=== PATIENT | female | born 1990 | race Hispanic/Latino ===

== ENCOUNTER → 2021-07-13 08:04 | Outpatient (CLI) | payer OTHER, SELFPAY ==
--- NOTE | 2021-07-13 08:07 | DI.US.S_ITS ---
PROCEDURE: US OB <= 14 WEEKS FETUS INDICATIONS: viability and dates OUTSIDE/PRIOR DATING DATA: Last menstrual period (LMP): 05/01/2021. LMP-based estimated date of delivery (CARIDAD): 02/05/2022. First dating scan (date and location): [facility], 07/13/2021. Estimated date of delivery (CARIDAD) from first dating scan: 02/03/2022. The calculations are made using the ultrasound CARIDAD of 02/03/2022. TECHNIQUE: Real-time scanning was performed of the fetus and maternal pelvic organs, with image documentation. Endovaginal scanning was also performed to better visualize the fetus and maternal ovaries. COMPARISON: None. FINDINGS: Embryo: A single live intrauterine is seen. The measured heart rate is 165 beats per minute. The crown-rump length measures 3.8 cm, corresponding to an estimated gestational age of 10 weeks 5 days. It is too early for detailed anatomic assessment. By visual inspection, the amount of amniotic fluid is within normal limits. No significant findings of subchorionic/perigestational hemorrhage are seen. Maternal organs: Ovaries are within normal limits. IMPRESSION: A single live intrauterine is seen. No significant discrepancy is found between the estimated gestational age based on these images and the estimated gestational age based upon the given date of the last menstrual period. We strive to produce accurate, complete, and clear reports of imaging services. To assist us in improving patient care, this report was composed using standard report templates and voice recognition software. Therefore, it may contain abnormal punctuation, insertions and/or omissions. Occasional wrong-word or sound-alike substitutions may occur. Though we review the report and make efforts to correct it, we do recommend that the report be read carefully in proper context to recognize any text inaccuracies. Dictated by: Edgar Rocha M.D. on 07/13/2021 at 8:16 Approved by: Edgar Rocha M.D. on 07/13/2021 at 8:17
== END ==
PROVIDERS: PCP Physician Assistant; Referring Provider Obstetrics & Gynecology; Visit Provider Obstetrics & Gynecology
DX: Z36.87 Encounter for antenatal screening for uncertain dates (principal); Z3A.10 10 weeks gestation of pregnancy
CPT/HCPCS: 76801; 76817

== ENCOUNTER → 2021-07-18 10:45 | Outpatient (CLI) | payer OTHER, SELFPAY ==
[2021-07-18 11:40] LABS: Add Manual Diff / Slide Review NO; Basophils Absolute Auto 0 /uL (0-100); Basophils Percent Auto 0.2 % (0-2); Eosinophils Absolute Auto 200 /uL (0-450); Eosinophils Percent Auto 2.2 % (2-4); Hematocrit 40.5 % (36-46); Hemoglobin 14.2 g/dL (12.0-16.0); Lymphocytes Absolute Auto 2700 /uL (1100-4500); Lymphocytes Percent Auto 27.3 % (25-40); Mean Corpuscular Hemoglobin 30.8 PG (26-34); Monocytes Absolute Auto 700 /uL (0-900); Monocytes Percent Auto 6.8 % (3-14); Neutrophils Absolute Auto 6400 /uL (1500-7000); Neutrophils Percent Auto 63.5 % (50-75); Platelet Count 257 X10^3/uL (150-400); Red Cell Distribution Width 13.2 % (11.6-14.8)
[2021-07-18 11:40] LABS: Appearance Urine UA CLEAR; Bilirubin Urine UA NEGATIVE (NEGATIVE); Color Urine UA YELLOW; Glucose Urine UA NEGATIVE (Negative); Ketones Urine UA NEGATIVE (NEGATIVE); Leukocyte Esterase Urine UA TRACE (NEGATIVE); Nitrite Urine UA NEGATIVE (Negative); Occult Blood Urine UA NEGATIVE (Negative); Protein Urine UA NEGATIVE (Negative); Urobilinogen Urine UA 0.2 E.U./dL (0.2)
[2021-07-18 11:46] LABS: Bacteria Urine Many (>30); RBC Urine None Seen (0-5/HPF); Squamous Epithelial Cell Urine 1-5 /HPF (0-5/HPF); WBC Urine 1-5/HPF (0-5/HPF)
[2021-07-19 05:33] LABS: RPR Screen Non Reactive (Non Reactive)
[2021-07-19 11:36] LABS: Varicella IgG Antibody 660 index (Immune >165)
[2021-07-19 16:54] LABS: Hepatitis B Surface Antigen NEGATIVE s/c (NEGATIVE)
[2021-07-19 17:00] LABS: HIV 1 & 2 Ab/Ag 4th Gen Combo NEGATIVE (NEGATIVE); Hep C Virus Ab w/Reflex Quant NEGATIVE s/c (NEGATIVE)
== END ==
PROVIDERS: PCP Physician Assistant; Referring Provider Obstetrics & Gynecology; Visit Provider Obstetrics & Gynecology
DX: Z34.00 Encounter for supervision of normal first pregnancy, unspecified trimester (principal)
CPT/HCPCS: 36415; 80055; 81003; 81015; 86787; 86803; 86850; 86900; 86901; 87077; 87086; 87186; 87389

== ENCOUNTER → 2021-09-07 16:06 | Outpatient (CLI) | payer OTHER, SELFPAY ==
[2021-09-10 12:59] LABS: AFP, Serum 62.5 ng/mL (.); Estriol, Free 1.52 ng/mL (.); Inhibin A, Dimeric 98.39 pg/mL (.); Inhibin A, MoM 0.81 (.); Maternal Ethnicity Other (.); Maternal Weight 229 lbs (.); Number of Fetuses No (.); OSBR Risk 1 IN 1713 (.); Results Report (.); Test Results *Screen Negative* (.); hCG, MoM 0.96 (.); hCG, Serum 21032 mIU/mL (.)
== END ==
PROVIDERS: PCP Physician Assistant; Referring Provider Obstetrics & Gynecology; Visit Provider Obstetrics & Gynecology
DX: Z34.02 Encounter for supervision of normal first pregnancy, second trimester (principal); Z3A.18 18 weeks gestation of pregnancy
CPT/HCPCS: 36415; 82105; 82677; 84702; 86336

== ENCOUNTER → 2021-09-19 10:46 | Outpatient (CLI) | payer OTHER, SELFPAY ==
--- NOTE | 2021-09-19 10:47 | DI.US.S_ITS ---
PROCEDURE: US OB >= 14 WEEKS FETUS INDICATIONS: 2o week anatomy scan OUTSIDE/PRIOR DATING DATA: Last menstrual period (LMP): 05/01/2021. LMP-based estimated date of delivery (CARIDAD): 02/05/2022. First dating scan (date and location): 06/23/2021. Estimated date of delivery (CARIDAD) from first dating scan: 02/03/2022. TECHNIQUE: Real-time scanning was performed of the fetus, with image documentation and biometric measurements. Endovaginal scanning: Not performed COMPARISON: None. FINDINGS: General: A single living intrauterine gestation is present. Presentation: Cephalic. Placenta: Placental position is posterior , without previa. Amniotic fluid index: 14.7 cm, normal range is 5-24 cm. Single deepest vertical pocket is 4.2 cm. heart rate: 143 beats per minute. Maternal cervical canal: 4.7 cm long. Normal lower limit is 2.5 cm. biometrics: Biparietal diameter: 5 cm, 21 weeks 1 day Head circumference: 18.9 cm, 21 weeks 2 days Abdominal circumference: 16.7 cm, 21 weeks 5 days Femur length: 3.5 cm, 21 weeks 1 day Clinically estimated gestational age: 20 weeks 1 day Composite gestational age from present scan: 21 weeks 2 days Estimated weight and percentile: 423 g, 97th percentile Anatomic survey: Neuro: Ventricles are non-dilated at less than 10 mm. Cisterna magna is normal at 3-11 mm. Cerebellum is normal in size and morphology. Nuchal skin fold: Normal at less than 6 mm between 14-21 weeks gestational age. Face: Nose and lips, facial profile are normal. Spine: No evidence for spina bifida. Heart: 4-chambered heart is present, with normal ventricular outflow tracts. Diaphragm: Diaphragm is intact. Stomach: Left-sided stomach is present. Kidneys: No hydronephrosis. Normal is less than 5 mm in 2nd trimester, less than 7 mm in 3rd trimester. Cord: 3-vessel cord has orthotopic insertion. Bladder: Normal in size. Extremities: All 4 extremities identified. IMPRESSION: 1. Single living intrauterine with CARIDAD of 02/05/2022 by LMP. 2. Estimated weight is greater than expected, at the 97th percentile. Attention on follow-up is recommended. 3. Normal 2nd trimester anatomy survey. No anomalies detected at this time. We strive to produce accurate, complete, and clear reports of imaging services. To assist us in improving patient care, this report was composed using standard report templates and voice recognition software. Therefore, it may contain abnormal punctuation, insertions and/or omissions. Occasional wrong-word or sound-alike substitutions may occur. Though we review the report and make efforts to correct it, we do recommend that the report be read carefully in proper context to recognize any text inaccuracies. Dictated by: Denzel Baptiste M.D. on 09/19/2021 at 20:39 Approved by: Denzel Baptiste M.D. on 09/19/2021 at 20:46
== END ==
PROVIDERS: PCP Physician Assistant; Referring Provider Obstetrics & Gynecology; Visit Provider Obstetrics & Gynecology
DX: Z34.02 Encounter for supervision of normal first pregnancy, second trimester (principal); Z3A.21 21 weeks gestation of pregnancy
CPT/HCPCS: 76811

== ENCOUNTER → 2021-10-16 15:21 | Outpatient (CLI) | payer OTHER, SELFPAY ==
[2021-10-16 18:14] LABS: Hematocrit 35.4 % (36-46)
[2021-10-16 18:25] LABS: GTT (PREG) 1 Hour PP 50gm Dose 151 mg/dL (76-139)
== END ==
PROVIDERS: PCP Physician Assistant; Referring Provider Obstetrics & Gynecology; Visit Provider Obstetrics & Gynecology
DX: Z34.90 Encounter for supervision of normal pregnancy, unspecified, unspecified trimester (principal); Z3A.22 22 weeks gestation of pregnancy
CPT/HCPCS: 36415; 82950; 85014; 85018

== ENCOUNTER → 2021-10-30 07:50 | Outpatient (CLI) | payer OTHER, SELFPAY ==
[2021-10-30 08:47] LABS: Glucose Fasting Gestational 123 mg/dL (76-95)
[2021-10-30 10:30] LABS: Glucose 1 Hour Gest 223 mg/dL (76-180)
[2021-10-30 11:13] LABS: Glucose 2 Hour Gest 175 mg/dL (76-155)
[2021-10-30 11:26] LABS: Glucose Tol Interp,Gestational INTERPRETATION
[2021-10-30 12:50] LABS: Glucose 3 Hour Gest 143 mg/dL (76-140)
== END ==
PROVIDERS: PCP Physician Assistant; Referring Provider Obstetrics & Gynecology; Visit Provider Obstetrics & Gynecology
DX: O99.810 Abnormal glucose complicating pregnancy (principal)
CPT/HCPCS: 36415; 82951; 82952

== ENCOUNTER → 2021-11-02 13:57 | Outpatient (CLI) | payer OTHER, SELFPAY ==
--- NOTE | 2021-11-02 17:34 | DIAB.GDA ---
Initial Gestational Diabetes Assessment Name: Courtney Segovia Date: 11/02/21 Time: 2-330p Dx: Gestational Diabetes Provider: Prabhu CARIDAD: 02/05/22 Weeks: 26-27 Sima presents today with her , Joel. She is having a boy! Endorses +FH of T2DM with father and paternal aunts. States she may have had prediabetes prior to , but she is unsure. Sima works from home and states she often looks for easy to make meals/snacks, often processed foods. OGTT significantly elevated. Currently taking Metformin 500mg at lunch and dinner. Is amenable to insulin prn. States she cut out a lot of carbs after diagnosis, ie hot pockets, cereal, and cup of noodles, chips, juice, oreos. Cut out fast food. She works from home. Moved [place]. Diet Recall: 9a: yogurt with toast and pro bar OR cereal 11a: balanced break 2p: eggs and string cheese ; turkey with green beans 5p: pro bar or cucumbers 6-830p: 2 sandwiches on ww thin bread ; 2c pasta with sauce and cheese ; burger with bun and 1c potatoes Water x 120oz daily Anthropometrics: Ht: 62 Wt: 228# last OB visit Prepregnancy wt: 220# Physical Activity: walking dog 1x per day for 15 min Self-Monitoring Blood Glucose: Just started checking BG. Only FBG available was elevated. States she was unclear as to when to check BG in the morning. Date Pre Post Pre Post Pre Post HS 11/01 94 132 11/02 104 Diabetes Medications: 500mg Metformin BID Pertinent Labs: OGTT: 128, 223, 175, 143 (all elevated) Nutrition Rx: Carbohydrates: Meal: 45-60g lunch and dinner; 30g breakfast Snack: 15-30g Nutrition Diagnosis: Altered nutrition related lab value r/t GDM dx aeb recent OGTT Nutrition and food related knowledge deficit r/t new GDM dx aeb pt report and OGTT Physical inactivity r/t stage of change preparation aeb pt report Intervention: This participant was very receptive. Provided appropriate educational handouts. Discussed the following topics: GDM pathophysiology and impact of hyperglycemia on mom and baby Risk for T2DM for mom and baby in the future Plate Method, meal timing, carb counting, pairing macronutrients and spreading out CHO for better BG management Blood glucose goals (FBG: <95 and 1 hour <140 mg/dL); importance of checking 4x per day (FBG and pc) Impact of macronutrients on blood glucose Recommended servings for carbohydrates at meals and snacks Brainstormed appropriate meal plan based on her food preferences Role of physical activity and following provider guidelines for safety After meal readings may be able to be managed with diet, given she had 44g CHO and BG was <140mg/dl last night. Though BG may trend up during . She will see OB in 10 days for BG and med evaluation. If FBG continue above target, potential insulin recs: 17-26u NPH HS based on weight or start with 10u HS and titrate Total daily dose insulin: 104kg x 1u/kg= 104units per day 104u/2= 52 NPH 52u x 1/3 for evening dose: 17u HS or 52u x 1/2 for evening dose: 26u HS Goals: Aim for 30 min walking daily Balance lunches (add veggies and pair macros) Check BG 4 x per day Take Metformin with breakfast and dinner Follow-up: KACEY TAM follow-up in two weeks. Jodi Bolaños RDN, [facility] Certified Diabetes Care and Print Traffic Manager T: [phone] F: [phone] [email or web address] Thank you for this referral
== END ==
PROVIDERS: PCP Physician Assistant; Referring Provider Obstetrics & Gynecology; Visit Provider Obstetrics & Gynecology
DX: O24.415 Gestational diabetes mellitus in pregnancy, controlled by oral hypoglycemic drugs (principal); Z3A.26 26 weeks gestation of pregnancy; Z71.3 Dietary counseling and surveillance
CPT/HCPCS: 97802

== ENCOUNTER → 2021-11-13 14:22 | Outpatient (CLI) | payer OTHER, SELFPAY | PROVIDERS: PCP Physician Assistant; Visit Provider Obstetrics & Gynecology | DX: Z34.03 Encounter for supervision of normal first pregnancy, third trimester (principal); Z3A.28 28 weeks gestation of pregnancy | CPT/HCPCS: 87077; 87086; 87186 ==

== ENCOUNTER → 2021-11-15 14:23 | Outpatient (CLI) | payer OTHER, SELFPAY ==
--- NOTE | 2021-11-15 14:23 | DIAB.GDFU ---
Follow-up Gestational Diabetes Assessment Name: Courtney Segovia Date: 11/15/21 Time: 130-215p Dx: Gestational Diabetes Provider: Prabhu CARIDAD: 02/05/22 Weeks: 28 Sima presents for GDM follow-up virtually via [employer] platform. Saw Dr. Pelletier 11/13. Her main concern was FBG. Dr. Pelletier has increased Metformin to 1000 mg BID to help with FBG numbers. She will cont to record BG and send to OB to determine insulin needs prn. Plans to pick remover higher Metformin dose today. Recently returned from trip to see family in [place]. Continued to balance meals and check BG. Spoke with family and friends about her diagnosis and had good support. Diet: Still struggling with lunch ideas. Had elevated BG of 168mg/dL after lunch of cereal, sf pudding and milk (70g CHO) Added easy veggies for dinner (green beans, broccoli) Had a cold when returned from trip. Some appetite changes (up and down) B: parfaits with yogurt, fruit, granola ; oatmeal fruit and cheese L: cereal or was eating out and balancing meals when on vacation D: PB and banana sandwich with cheese; turkey burgers with b.sprouts; [place] lunch meat warmed on bread Anthropometrics: Ht: 62 Wt: 224.5# 11/13 at OB visit 228# at previous visit. Down 3.5# likely r/t diet changes. Prepregnancy wt: 220# Physical Activity: Not much energy this week from recent cold. Was walking on vacation, maybe ?too much?, cramping and SOB. Feeling better today. Plans to walk 15 min BID. Self-Monitoring Blood Glucose: All FBG are above target, one reading of 95. Most postprandial reading in goal, with a few recent elevations. She has a question about low blood sugars. [place] faint and BG was at 80 mg/dL, had a snack (frozen yogurt), waited 20 minutes and checked B mg/dl. States she had eaten 1.5 hours prior, which was perhaps lower in carb (postprandial lunch reading of 98mg/dL for veggies and small dumplings x 4-5). Date Pre Post Pre Post Pre Post 11/08 97 128 126 11/09 95 142 98 131 11/10 92 85 114 11/11 118 122 113 108 11/12 108 132 148 11/13 114 111 102 107 11/14 107 124 163 126 11/15 94 105 Diabetes Medications: 1000 mg Metformin BID starting tonight Pertinent Labs: OGTT: 128, 223, 175, 143 (all elevated) Nutrition Rx: Carbohydrates: Meal: 45-60g lunch and dinner; 30g breakfast Snack: 15-30g Nutrition Diagnosis: Altered nutrition related lab value r/t GDM dx aeb recent OGTT Nutrition and food related knowledge deficit r/t new GDM dx aeb pt report and OGTT- improved Physical inactivity r/t stage of change preparation aeb pt report- in progress Intervention: This participant was very receptive. Provided appropriate educational handouts. Discussed the following topics: Recent blood sugar results and impact of food and hormones Hypoglycemia s/s Lunch ideas: special k pro, turkey pre warmed Review of macronutrient recommendations during Medication plan Physical activity plan Support and emotions around GDM diagnosis Goals: Aim for 30 min walking daily- in progress Balance lunches (add veggies and pair macros)- in progress Check BG 4 x per day- met Take Metformin with breakfast and dinner- met Keep cereal to one cup- new Check out special k pro cereal- new Add pro to cereal (nuts or cheese)- new Try pre warming turkey for lunch - new Follow-up: KACEY TAM follow-up in two weeks. Sima is doing very well and making a great lifestyle change progress. hormones are really impacting her FBG and she has a plan with Dr. Pelletier for this. Jodi Bolaños RDN, [facility] Certified Diabetes Care and Almond Pan Finisher T: [phone] F: [phone] [email or web address] Thank you for this referral
== END ==
PROVIDERS: PCP Physician Assistant; Referring Provider Obstetrics & Gynecology; Visit Provider Obstetrics & Gynecology
DX: O24.415 Gestational diabetes mellitus in pregnancy, controlled by oral hypoglycemic drugs (principal); Z3A.28 28 weeks gestation of pregnancy
CPT/HCPCS: 97803

== ENCOUNTER → 2021-11-23 16:12 | Outpatient (CLI) | payer OTHER, SELFPAY ==
[2021-11-23 19:04] LABS: Bilirubin Urine UA NEGATIVE (NEGATIVE); Color Urine UA YELLOW; Glucose Urine UA NEGATIVE (Negative); Ketones Urine UA 1+ (NEGATIVE); Leukocyte Esterase Urine UA TRACE (NEGATIVE); Nitrite Urine UA POSITIVE (Negative); Occult Blood Urine UA 1+ (Negative); Protein Urine UA TRACE (Negative); Specific Gravity Urine UA 1.025 (1.000-1.035); Urobilinogen Urine UA 0.2 E.U./dL (0.2)
[2021-11-23 19:05] LABS: Appearance Urine UA CLOUDY
[2021-11-23 19:11] LABS: RBC Urine 1-5/HPF (0-5/HPF)
[2021-11-23 19:12] LABS: Amorphous Sediment Urine 1+; Bacteria Urine Many (>30); Culture Indicated Urine Specimen Cultured; Mucus Urine 1+ (Negative); Squamous Epithelial Cell Urine 1-5 /HPF (0-5/HPF); WBC Urine 5-10/HPF (0-5/HPF)
[2021-11-23 20:30] LABS: Urine N gonorrhoeae NOT DETECTED
[2021-11-23 20:33] LABS: Urine Chlamydia NOT DETECTED
== END ==
PROVIDERS: PCP Physician Assistant; Visit Provider Obstetrics & Gynecology
DX: Z34.02 Encounter for supervision of normal first pregnancy, second trimester (principal); Z3A.29 29 weeks gestation of pregnancy
CPT/HCPCS: 81001; 87086; 87491; 87591

== ENCOUNTER → 2021-11-30 14:46 | Outpatient (CLI) | payer OTHER, SELFPAY ==
--- NOTE | 2021-11-30 14:47 | DIAB.GDFU ---
Follow-up Gestational Diabetes Assessment Name: Courtney Segovia Date: 11/30/21 Time: 1223-103p Dx: Gestational Diabetes Provider: Prabhu CARIDAD: 02/05/22 Weeks: 30-31 Sima presents for GDM follow-up virtually via [employer] platform. Taking Metformin 1000mg BID. Based on elevated FBG, would rec initiation of insulin HS. Has questions regarding potential for low BG. Last states she saw OB d/t feeling hot and cold and unwell. [place] lightheaded and clammy. Sometimes seeing floaters. Endorses discussing with OB. Some swelling in hands and right foot. She recovered by the next day after this. States BP was slightly elevated. Thinks the overall feeling unwell may be related to increased Metformin. BG was 102 mg/dL, so no hypo. Reports this does not seem to happen when she eats a more robust breakfast with morning Metformin dose. Overall, diet seems to be going well. Has been creative about lower carb cereals and using air fryer for turkey. Physical Activity: 15 min walks daily. Interested in yoga or more walking. Self-Monitoring Blood Glucose: Most FBG elevated this week. She is open to insulin therapy. No postprandial elevations. Date Pre Post Pre Post Pre Post HS 11/25 96 125 103 114 11/26 97 107 95 93 11/27 91 131 115 109 11/28 108 139 118 131 11/29 109 92 106 131 11/30 98 Diabetes Medications: 1000mg Metformin BID Pertinent Labs: Pertinent Labs: OGTT: 128, 223, 175, 143 (all elevated) Intervention: This participant was very receptive. Provided appropriate educational handouts. Discussed the following topics: Recent blood sugar results and impact of food and hormones Review of nutrition recs Review of insulin recs (where she can inject, action time of insulin) Physical activity progress and plan Low BG relatively low risk and treatment Insulin Recs: 0.9u/kg = 92u 92u /3 = 30u non fasting insulin dose 30u/d = 15u for bedtime dose Sima might benefit from 10-15u of NPH or long-acting insulin HS to help manage FBG. Goals: Cereal to one cup- met Special k pro cereal- d/c Add nuts or cheese to cereal- met Try pre warming turkey- met Walking 15 min BID- 50% met Try extending walk to 20 min- new Add yoga stretches 10 min per day - new Follow-up: KACEY TAM follow-up in 2 weeks. Will call her next week to check-in but she will see Dr. Pelletier next week as well. Jodi Bolaños RDN, [facility] Certified Diabetes Care and Journeyman Pressman T: [phone] F: [phone] [email or web address] Thank you for this referral
== END ==
PROVIDERS: PCP Physician Assistant; Referring Provider Obstetrics & Gynecology; Visit Provider Obstetrics & Gynecology
DX: O24.415 Gestational diabetes mellitus in pregnancy, controlled by oral hypoglycemic drugs (principal); Z3A.30 30 weeks gestation of pregnancy; Z71.3 Dietary counseling and surveillance
CPT/HCPCS: G0108

== ENCOUNTER → 2021-12-05 11:51 | Outpatient (CLI) | payer OTHER, SELFPAY | PROVIDERS: PCP Physician Assistant; Visit Provider Obstetrics & Gynecology | DX: R31.9 Hematuria, unspecified (principal); Z34.03 Encounter for supervision of normal first pregnancy, third trimester; Z3A.31 31 weeks gestation of pregnancy | CPT/HCPCS: 87077; 87086; 87186 ==

== ENCOUNTER → 2021-12-14 17:05 | Outpatient (CLI) | payer OTHER, SELFPAY ==
--- NOTE | 2021-12-14 17:07 | DIAB.GDFU ---
Follow-up Gestational Diabetes Assessment Name: Courtney Segovia Date: 12/14/21 Time:105-2p Dx: Gestational Diabetes Provider: Prabhu CARIDAD: 02/05/22 Weeks: 32 Sima presents for GDM follow-up virtually via [employer] platform. Still having difficulty filling her insulin rx. Hoping [facility] will have rx ready today. [facility] Levemir, asked for Lantus rx. Now rx back to [facility]. [facility] OB RN got auth for Levemir, should be filled today per report. Reports some meals higher in carb resulting in elevated BG, but overall most meals in goal for nutrition rx and elevations after breakfast are related to eating after elevated FBG. She is noticing some days with limited appetite. Trying low carb protein drink to supplement. Diet Recall: B: yogurt, toast or toast with apple and PB or egg sandwich Sn: balanced breaks +/- cheese L: turkey sandwiches, apples and PB or pro shake or higher pro cereal (1-1.5c) Sn: yogurt or string cheese with fruit D: 1c beans, broccoli or b. sprouts or zucchini, potatoes, cheese with lower carb tortillas Lower carb frozen meals with 1c rice Sn: nothing or keto ice cream Beverages: water Has questions today about meds and BG and risk for GDM in future. Anthropometrics: Ht: 62 Wt: 223# 12/11 at OB visit Continued weight loss may be r/t diet changes. Encouraged small frequent meals and adding more nutrition to shakes. Prepregnancy wt: 220# Physical Activity: Stretches q day Walking more with preparing for baby shower while shopping Goes for walks on days she is not shopping. Walking 20 minutes Trying to incorporate more walking in her day, walking dog 5-10 min Self-Monitoring Blood Glucose: 06/21 elevated FBG. 2 elevated pc readings. Sima reports reducing BG checks per day d/t paying out of pocket for strips. This seems to be an oversight somewhere. She plans to call pharmacy for more information. Date Pre Post Pre Post Pre Post HS 12/08 93 104 142 12/09 91 96 12/10 114 160 105 12/11 87 108 128 109 12/12 101 115 118 12/13 102 94 111 12/14 116 Diabetes Medications: 1000mg Metformin BID XR Detemir 30u HS (not started) Pertinent Labs: OGTT: 128, 223, 175, 143 (all elevated) Nutrition Rx: Carbohydrates: Meal: 45-60g lunch and dinner; 30g breakfast Snack: 15-30g Nutrition Diagnosis: Altered nutrition related lab value r/t GDM dx aeb recent OGTT Nutrition and food related knowledge deficit r/t new GDM dx aeb pt report and OGTT- improved Physical inactivity r/t stage of change preparation aeb pt report- in progress Intervention: This participant was very receptive. Provided appropriate educational handouts. Discussed the following topics: Recent blood sugar results and impact of food and hormones Barriers to insulin and strips. Brainstormed plan. Adding carbs to low protein shake at snack GDM risk in future pregnancies Potential BG checks 2 x per week until 6 week check Likelihood of d/c insulin Goals: Try extending walk to 20 min- met Add yoga stretches 10 min per day - met Add some fruit to pro shake or eat with carb for mini meal or snack- new Call pharmacy about insulin and strips- new Follow-up: KACEY TAM follow-up over phone/message in one week. 1:1 in three weeks. Jodi Bolaños RDN, [facility] Certified Diabetes Care and Supply And Distribution Manager T: [phone] F: [phone] [email or web address] Thank you for this referral
== END ==
PROVIDERS: PCP Physician Assistant; Referring Provider Obstetrics & Gynecology; Visit Provider Obstetrics & Gynecology
DX: O24.415 Gestational diabetes mellitus in pregnancy, controlled by oral hypoglycemic drugs (principal); Z3A.32 32 weeks gestation of pregnancy; Z71.3 Dietary counseling and surveillance
CPT/HCPCS: 97803

== ENCOUNTER → 2021-12-27 14:33 | Outpatient (CLI) | payer OTHER, SELFPAY | PROVIDERS: PCP Physician Assistant; Visit Provider Physician Assistant Medical | DX: Z34.03 Encounter for supervision of normal first pregnancy, third trimester (principal); N39.0 Urinary tract infection, site not specified; Z3A.34 34 weeks gestation of pregnancy | CPT/HCPCS: 87086 ==

== ENCOUNTER 2021-12-27 15:00 | Outpatient (CLI) | payer OTHER, SELFPAY ==
--- NOTE | 2021-12-27 15:11 | DI.US.S_ITS ---
PROCEDURE: US OB LIMITED INDICATIONS: GROWTH AND BPP, GDM ON INSULIN OUTSIDE/PRIOR DATING DATA: Last menstrual period (LMP): May 01, 2021. LMP-based estimated date of delivery (CARIDAD): February 05, 2022. First dating scan (date and location): July 13, 2021, formerly [facility]. Estimated date of delivery (CARIDAD) from first dating scan: February 03, 2022 TECHNIQUE: Real-time scanning was performed of the fetus, with image documentation and biometric measurements. Biophysical profile was also obtained. Endovaginal scanning: Not performed COMPARISON: None. FINDINGS: General: A single living intrauterine gestation is present. Presentation: Vertex. Placenta: Placental position is posterior , without previa. Amniotic fluid index: 11.8 cm, normal range is 5-24 cm. Single deepest vertical pocket is 3.4 cm. heart rate: 139 beats per minute. Maternal cervical canal: Not visualized biometrics: Biparietal diameter: 9.4 cm, 38 weeks, 2 days Head circumference: 3.2 cm, 37 weeks, 6 days Abdominal circumference: 31.7 cm, 35 weeks, 5 days Femur length: 6.7 cm, 34 weeks, 3 days Composite gestational age from present scan: 34 weeks, 4 days Estimated weight and percentile: 36 weeks, 4 days Biophysical profile: Tone: 2 points. Movement: 2 points. Respiration: 2 points. Largest pocket of fluid: 2 points. IMPRESSION: 1. Single live intrauterine gestation with a composite gestational age of 36 weeks, 4 days which is concordant with dates by initial scan. 2. 8/8 biophysical profile. We strive to produce accurate, complete, and clear reports of imaging services. To assist us in improving patient care, this report was composed using standard report templates and voice recognition software. Therefore, it may contain abnormal punctuation, insertions and/or omissions. Occasional wrong-word or sound-alike substitutions may occur. Though we review the report and make efforts to correct it, we do recommend that the report be read carefully in proper context to recognize any text inaccuracies. Dictated by: Madelin Kulkarni M.D. on 12/27/2021 at 16:51 Approved by: Madelin Kulkarni M.D. on 12/27/2021 at 16:53
== END 2021-12-27 15:35 | disposition home or self-care (01) ==
LOC: LABOR 15:26 → OB 01-01 13:01
PROVIDERS: PCP Physician Assistant; Referring Provider Obstetrics & Gynecology; Visit Provider Obstetrics & Gynecology
DX: O24.414 Gestational diabetes mellitus in pregnancy, insulin controlled (principal); Z3A.34 34 weeks gestation of pregnancy; Z34.03 Encounter for supervision of normal first pregnancy, third trimester; N39.0 Urinary tract infection, site not specified
CPT/HCPCS: 59025; 76815; 76819; 87086; G0378; G0379

== ENCOUNTER 2022-01-03 12:35 | Outpatient (CLI) | payer OTHER, SELFPAY ==
--- NOTE | 2022-01-03 13:14 | P.TNLD_ITS ---
Visit Information Visit Information Date of evaluation: 01/03/22 On-call OB Provider: Yessi Tai Reason for Evaluation: Yes non-stress test non-stress test reason: diabetes PFSH Medical History Asthma Chicken pox Encounter for supervision of normal first , first trimester Surgical History [place] teeth extracted Family History Father Diabetes mellitus Mental health problem Social History marital status: number of children: 0 household members: spouse lives independently: Yes housing: apartment pets and animals: Yes (dog, snake) education level: master's degree occupational status: employed current occupational exposures/hazards: 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, sometimes smells odors from downstairs.) special cam needs: No travel history: over 6 months ago seatbelt use: always water heater temp set < 120 deg: No (will check) working smoke detector in home: Yes fire extinguisher in home: No carbon monox detector in home: Yes firearms in home: Yes firearms unloaded and locked: Yes do you feel safe at home: Yes Smoking Status: Never smoker second hand exposure: Yes (as child, no longer) alcohol intake: former substance use type: marijuana (was using edibles for back pain, stopped since + test) during the past year weight has: remained stable well-balanced diet: daily or most days daily servings fruits/ve-4 Type(s) of exercise: walking and regular exercise frequency: 3-4 times per week Evaluation Evaluation Baseline heart rate: 135 Variability: Moderate (11-25) monitor accelerations: Present Monitor Decelerations: Absent Contraction Frequency (minutes): 6 Uterine Contraction Intensity: Mild Category of Tracing: Reactive Diagnosis, Plan/Disposition Plan/Disposition Plan: BPP in 1 week NST twice a week OB Disposition: home
== END 2022-01-03 13:44 | disposition home or self-care (01) ==
LOC: OB 01-07 08:51
PROVIDERS: PCP Physician Assistant; Referring Provider Obstetrics & Gynecology; Visit Provider Obstetrics & Gynecology
DX: O24.414 Gestational diabetes mellitus in pregnancy, insulin controlled (principal); Z3A.35 35 weeks gestation of pregnancy
CPT/HCPCS: 59025; 87077; 87086; 87186; G0378; G0379

== ENCOUNTER → 2022-01-03 14:41 | Outpatient (CLI) | payer OTHER, SELFPAY | PROVIDERS: PCP Physician Assistant; Visit Provider Obstetrics & Gynecology | DX: R35.0 Frequency of micturition (principal) | CPT/HCPCS: 87086 ==

== ENCOUNTER → 2022-01-04 13:16 | Outpatient (CLI) | payer OTHER, SELFPAY ==
--- NOTE | 2022-01-04 14:21 | DIAB.GDFU ---
Follow-up Gestational Diabetes Assessment Name: Courtney Segovia Date: 01/04/22 Time: 1-145p Dx: Gestational Diabetes CARIDAD: 02/05/22 Weeks: 35 Sima presents for GDM follow-up virtually via [email or web address] platform. Two main concerns Sima brought up today were in regard to induction in two weeks and limited weight gain. Her OB (Dr. Pelletier) is out of town, and she saw Dr. Salinas and Dr. Tai recently. They had recommended induction at 37 weeks. Sima is very uneasy about this. Since most blood sugars are in goal, she is surprised to hear that she may be induced at 37 weeks. States she has lost sleep over this. Dr. Pelletier returns next week per her report. She is also concerned that she has only net gained 5# over this . Given prepregnancy weight, IOM recs are about 10#, however she has made significant changes to her diet since GDM diagnosis. Additionally, she is not feeing overly hungry. Seems to be eating appropriately. Is spacing meals/snacks through the day. Is having some early satiety, which often occurs later in . Anthropometrics: Ht: 62 Wt: 225# 01/03 (yesterday) at OB visit Prepregnancy wt: 220# Physical Activity: Endorses staying active. Not discussed in detail today. Self-Monitoring Blood Glucose: / elevated FBG and no recent 1 hr pc elevations. Called pharmacy and had rx; no longer paying out of pocket for strips. Date Pre Post Pre Post Pre Post HS 12/29 83 129 12/30 78 102 138 12/31 98 110 117 01/01 84 102 123 01/02 87 88 105 01/03 83 132 140 01/04 99 Diabetes Medications: 1000mg Metformin BID XR Detemir 30u HS Pertinent Labs: OGTT: 128, 223, 175, 143 (all elevated) Nutrition Rx: Carbohydrates: Meal: 45-60g lunch and dinner; 30g breakfast Snack: 15-30g Nutrition Diagnosis: Altered nutrition related lab value r/t GDM dx aeb recent OGTT Nutrition and food related knowledge deficit r/t needing recs aeb new dx GDM this Intervention: This participant was very receptive. Provided appropriate educational handouts. Discussed the following topics: Recent blood sugar results and trends Discussed induction recs. Encouraged her to discuss further with Dr. Pelletier. Reviewed how GDM with well managed BG on meds can result in induction at 39 weeks, but unclear if there are other underlying reasons why OB may rec induction sooner. Again encouraged her not to worry too much and to discuss plan with Dr. Pelletier. She agreed. Review of macronutrient recommendations during and Weight changes during . Benefits, resources, and nutrition for recommendations for nutrition and physical activity recommendations for T2DM risk reduction OGTT at 6-12 weeks Option of checking blood sugars twice per week (goal: fasting <100 mg/dL and 2 hour pc <140 mg/dL) until 6 week check-up HgA1c q 1-3 years. Goals: Add some fruit to pro shake or eat with carb for mini meal or snack- not discussed Call pharmacy about insulin and strips- met Discuss induction plan with Dr. Pelletier- new OGTT 6-12 weeks - new hgA1c q 1-3 years- new Follow-up: KACEY TAM follow-up prn. Sima's GDM is well managed on current regimen. Encouraged her to call or message me with any questions or follow-up needs. Jodi Bolaños RDN, YONATAN Certified Diabetes Care and Director Of Oncology T: [phone] F: [phone] [email or web address] Thank you for this referral
== END ==
PROVIDERS: PCP Physician Assistant; Referring Provider Physician Assistant; Visit Provider Obstetrics & Gynecology
DX: O24.414 Gestational diabetes mellitus in pregnancy, insulin controlled (principal); Z3A.35 35 weeks gestation of pregnancy; Z71.3 Dietary counseling and surveillance
CPT/HCPCS: G0108

== ENCOUNTER 2022-01-06 10:54 | Outpatient (CLI) | payer OTHER, SELFPAY ==
--- NOTE | 2022-01-06 11:33 | P.TNLD_ITS ---
Visit Information Visit Information Date of evaluation: 01/06/22 Primary OB Provider: Alfredo Pelletier On-call OB Provider: Yessi Tai Reason for Evaluation: Yes non-stress test non-stress test reason: diabetes (GDM A2) FOR[facility]LY [facility], [facility] Medical History Asthma Chicken pox Encounter for supervision of normal first , first trimester Surgical History [place] teeth extracted Family History Father Diabetes mellitus Mental health problem Social History marital status: number of children: 0 household members: spouse lives independently: Yes housing: apartment pets and animals: Yes (dog, snake) education level: master's degree occupational status: employed current occupational exposures/hazards: 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, sometimes smells odors from downstairs.) special cam needs: No travel history: over 6 months ago seatbelt use: always water heater temp set < 120 deg: No (will check) working smoke detector in home: Yes fire extinguisher in home: No carbon monox detector in home: Yes firearms in home: Yes firearms unloaded and locked: Yes do you feel safe at home: Yes Smoking Status: Never smoker second hand exposure: Yes (as child, no longer) alcohol intake: former substance use type: marijuana (was using edibles for back pain, stopped since + test) during the past year weight has: remained stable well-balanced diet: daily or most days daily servings fruits/ve-4 Type(s) of exercise: walking and regular exercise frequency: 3-4 times per week Evaluation Evaluation Baseline heart rate: 135 Variability: Moderate (11-25) monitor accelerations: Present Monitor Decelerations: Absent Category of Tracing: Reactive Diagnosis, Plan/Disposition Plan/Disposition Plan: Assessment: 31-year-old 1 para 0 at 35-,5/7 weeks gestation with gestational diabetes, A2 Reactive nonstress test Plan: Discharged home Follow-up in 3 days for repeat nonstress test Induction scheduled for 37 weeks OB Disposition: home
== END 2022-01-06 11:44 | disposition home or self-care (01) ==
LOC: LABOR 11:39 → OB 01-08 10:33
PROVIDERS: PCP Physician Assistant; Referring Provider Obstetrics & Gynecology; Visit Provider Obstetrics & Gynecology
DX: O24.414 Gestational diabetes mellitus in pregnancy, insulin controlled (principal); Z3A.35 35 weeks gestation of pregnancy
CPT/HCPCS: 59025; G0378; G0379

== ENCOUNTER → 2022-01-09 09:16 | Outpatient (CLI) | payer OTHER, SELFPAY ==
[2022-01-10 08:23] LABS: Strep Grp B PCR NEG for Grp B Strep
== END ==
PROVIDERS: PCP Physician Assistant; Visit Provider Obstetrics & Gynecology
DX: Z34.03 Encounter for supervision of normal first pregnancy, third trimester (principal); Z3A.36 36 weeks gestation of pregnancy
CPT/HCPCS: 87653

== ENCOUNTER 2022-01-09 10:03 | Observation (INO) | payer OTHER, SELFPAY ==
--- NOTE | 2022-01-09 11:09 | DI.US.S_ITS ---
PROCEDURE: US OB BIOPHYSICAL PROFILE INDICATIONS: gestational diabetes OUTSIDE/PRIOR DATING DATA: Last menstrual period (LMP): 05/01/2021 LMP-based estimated date of delivery (CARIDAD): 02/05/2022 First dating scan (date and location): 07/13/2021 Estimated date of delivery (CARIDAD) from first dating scan: 04/05/2021 TECHNIQUE: Real-time scanning was performed of the fetus for biophysical profile, with image documentation. Color and pulse Doppler interrogation was also performed of the umbilical artery near its insertion into the placenta. Endovaginal scanning: Not performed today COMPARISON: [facility], , OB >= 14 WEEKS FETUS, 01/03/2022, 15:17. FINDINGS: General: A single living intrauterine gestation is present. Presentation: Cephalic. Placenta: Posterior Amniotic fluid index: 10.2 heart rate: 144 beats per minute Maternal cervical canal: Not well seen Estimated gestational age is 36 weeks and 3 days based on prior dating Biophysical profile: Tone: 2 points. Movement: 2 points. Respiration: 2 points. Largest pocket of fluid: 2 points. IMPRESSION: Intrauterine at 36 weeks and 3 days based on prior dating. BPP is 8/8. We strive to produce accurate, complete, and clear reports of imaging services. To assist us in improving patient care, this report was composed using standard report templates and voice recognition software. Therefore, it may contain abnormal punctuation, insertions and/or omissions. Occasional wrong-word or sound-alike substitutions may occur. Though we review the report and make efforts to correct it, we do recommend that the report be read carefully in proper context to recognize any text inaccuracies. Dictated by: Karel Parekh M.D. on 01/09/2022 at 12:39 Approved by: Karel Parekh M.D. on 01/09/2022 at 12:42
--- NOTE | 2022-01-09 12:41 | PM.OBTRLD ---
Visit Information Visit Information Date of evaluation: 01/09/22 Primary OB Provider: Alfredo Pelletier On-call OB Provider: Alferdo Pelletier Reason for Evaluation: Yes non-stress test Comments/Additional reasons for admission: GDM A2 [facility] Medical History Asthma Chicken pox Encounter for supervision of normal first , first trimester Surgical History [place] teeth extracted Family History Father Diabetes mellitus Mental health problem Social History marital status: number of children: 0 household members: spouse lives independently: Yes housing: apartment pets and animals: Yes (dog, snake) education level: master's degree occupational status: employed current occupational exposures/hazards: 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, sometimes smells odors from downstairs.) special cam needs: No travel history: over 6 months ago seatbelt use: always water heater temp set < 120 deg: No (will check) working smoke detector in home: Yes fire extinguisher in home: No carbon monox detector in home: Yes firearms in home: Yes firearms unloaded and locked: Yes do you feel safe at home: Yes Smoking Status: Never smoker second hand exposure: Yes (as child, no longer) alcohol intake: former substance use type: marijuana (was using edibles for back pain, stopped since + test) during the past year weight has: remained stable well-balanced diet: daily or most days daily servings fruits/ve-4 Type(s) of exercise: walking and regular exercise frequency: 3-4 times per week
== END 2022-01-09 12:35 | disposition home or self-care (01) ==
PROVIDERS: Admitting Provider Obstetrics & Gynecology; PCP Physician Assistant; Referring Provider Obstetrics & Gynecology; Visit Provider Obstetrics & Gynecology
DX: O24.414 Gestational diabetes mellitus in pregnancy, insulin controlled (principal); Z3A.36 36 weeks gestation of pregnancy; Z34.03 Encounter for supervision of normal first pregnancy, third trimester
CPT/HCPCS: 59025; 76819; 87653; G0378; G0379

== ENCOUNTER 2022-01-13 11:01 | Outpatient (CLI) | payer OTHER, SELFPAY | END 2022-01-13 11:59 | disposition home or self-care (01) | LOC: OB 01-18 16:45 | PROVIDERS: PCP Physician Assistant; Referring Provider Obstetrics & Gynecology; Visit Provider Obstetrics & Gynecology | DX: O47.03 False labor before 37 completed weeks of gestation, third trimester (principal); O24.913 Unspecified diabetes mellitus in pregnancy, third trimester; Z79.4 Long term (current) use of insulin; Z79.84 Long term (current) use of oral hypoglycemic drugs; Z3A.36 36 weeks gestation of pregnancy | CPT/HCPCS: 59025; G0378; G0379 ==

== ENCOUNTER 2022-01-15 15:26 | Outpatient (CLI) | payer OTHER, SELFPAY | END 2022-01-15 16:23 | disposition home or self-care (01) | LOC: LABOR 16:23 → OB 01-18 16:43 | PROVIDERS: PCP Physician Assistant; Referring Provider Obstetrics & Gynecology; Visit Provider Obstetrics & Gynecology | DX: O24.414 Gestational diabetes mellitus in pregnancy, insulin controlled (principal); Z3A.37 37 weeks gestation of pregnancy | CPT/HCPCS: G0378; G0379 ==

== ENCOUNTER 2022-01-18 14:38 | Outpatient (CLI) | payer OTHER, SELFPAY ==
--- NOTE | 2022-01-18 15:09 | DI.US.S_ITS ---
PROCEDURE: US OB BIOPHYSICAL PROFILE INDICATIONS: GESTATIONAL DIABETES OUTSIDE/PRIOR DATING DATA: Last menstrual period (LMP): 05/01/21 LMP-based estimated date of delivery (CARIDAD): 02/05/22. First dating scan (date and location): 07/13/21. Estimated date of delivery (CARIDAD) from first dating scan: 02/03/22. The calculations are made using the 1st trimester CARIDAD of 02/03/22. TECHNIQUE: Real-time scanning was performed of the fetus for biophysical profile, with image documentation. Color and pulse Doppler interrogation was also performed of the umbilical artery near its insertion into the placenta. Endovaginal scanning: Not needed COMPARISON: [facility], , OB BIOPHYSICAL PROFILE, 01/09/2022, 11:38. FINDINGS: General: A single living intrauterine gestation is present. Presentation: Vertex. Placenta: Placental position is posterior fundal , without previa. Lower placental edge 0.5 to 3 cm from internal cervical os qualifies as low lying placenta. Marginal previa is defined as lower edge 0 to 0.5 mm from internal os. Amniotic fluid index: 7.3 cm, normal range is 5-24 cm. Single deepest vertical pocket is 2.9 cm. heart rate: 147 beats per minute. Biophysical profile: Tone: 2 points. Movement: 2 points. Respiration: 2 points. Largest pocket of fluid: 2 points. IMPRESSION: Normal biophysical profile, delivery date projected to be centered on 02/03/22 We strive to produce accurate, complete, and clear reports of imaging services. To assist us in improving patient care, this report was composed using standard report templates and voice recognition software. Therefore, it may contain abnormal punctuation, insertions and/or omissions. Occasional wrong-word or sound-alike substitutions may occur. Though we review the report and make efforts to correct it, we do recommend that the report be read carefully in proper context to recognize any text inaccuracies. Dictated by: Pierre Peters M.D. on 01/18/2022 at 15:38 Approved by: Pierre Peters M.D. on 01/18/2022 at 15:41
== END 2022-01-18 15:45 | disposition home or self-care (01) ==
LOC: LABOR 14:54 → OB 01-22 08:00
PROVIDERS: PCP Physician Assistant; Referring Provider Obstetrics & Gynecology; Visit Provider Obstetrics & Gynecology
DX: O24.414 Gestational diabetes mellitus in pregnancy, insulin controlled (principal); Z3A.37 37 weeks gestation of pregnancy
CPT/HCPCS: 59025; 76819; G0378; G0379

== ENCOUNTER 2022-01-22 18:24 | Inpatient (IN) | payer OTHER, SELFPAY ==
--- NOTE | 2022-01-22 20:27 | P.HPOB_ITS ---
OB HPI Date/Time Date of admission: 01/22/22 Date Patient Seen: 01/22/22 History of Present Condition Chief complaint: IUP, 38+0 wks EGA, GDM A2 : 1 Para: 0 Estimated Date of Delivery: 02/05/22 Estimated Gestational Age (weeks): 38+0 Narrative: Courtney Segovia is a 31 year old G1 admitted at 38+0 weeks EGA for ripening/induction due to GDM A2 on HS Levemir 30u and Metformin XR 1000 mg BID w/ excellent control. Her antepartum testing has been reassuring. Her most recent growth scan on 12/27/2021 didn't provide an EFW or %'tile but composite EGA was slightly ahead of dates and the HC/BPD were both LGA. Will repeat growth scan following admission for update biometry as the vertex remains unengaged. GBS is negative. Indications Indication for induction OB: gestational diabetes History of Present care: good care Dating criteria: LMP confirmed by 1st trimester US Obstetrical complications: gestational diabetes Preadmission Labs Blood type: O (+) positive -: Antibody screen: negative, GBS status: negative, HBsAG: negative, HIV: negative and RPR/VDLR: negative -: Chlamydia screen: not detected and Gonorrhea screen: not detected -: Rubella: not immune and Varicella: immune HCT: 35.4 HCAB: negative PAP: Normal 1 hr GTT: 151 3 hr GTT: 1 hr (223), 2 hr (175) and 3 hr (143) Fasting blood glucose: 123 Prior (ies) History: N/A Evaluation Evaluation Baseline heart rate: 135 Variability: Moderate (11-25) monitor accelerations: Present Monitor Decelerations: Absent Uterine Contraction Intensity: Mild Category of Tracing: Reactive Status: Category l Dilation (cm): 0 Effacement (%): 25 Dilation: Closed Effacement: 0-30% station: -3 Position of cervix: posterior Consistency: firm Sanchez score: 0 PFSH Medical History Asthma Chicken pox Encounter for supervision of normal first , first trimester Surgical History [place] teeth extracted Family History Father Diabetes mellitus Mental health problem Social History marital status: number of children: 0 household members: spouse lives independently: Yes housing: apartment pets and animals: Yes (dog, snake) education level: master's degree occupational status: employed current occupational exposures/hazards: 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, rowena arjunmes smells odors from downstairs.) special cam needs: No travel history: over 6 months ago seatbelt use: always water heater temp set < 120 deg: No (will check) working smoke detector in home: Yes fire extinguisher in home: No carbon monox detector in home: Yes firearms in home: Yes firearms unloaded and locked: Yes do you feel safe at home: Yes Smoking Status: Never smoker second hand exposure: Yes (as child, no longer) alcohol intake: former substance use type: marijuana (was using edibles for back pain, stopped since + test) during the past year weight has: remained stable well-balanced diet: daily or most days daily servings fruits/ve-4 Type(s) of exercise: walking and regular exercise frequency: 3-4 times per week Meds Home Medications and Allergies Home Medications Medication Instructions Recorded Confirmed Type prenat.vits,philipp,hcq-fduy-qbfwj 1 tab PO DAILY 07/09/21 01/22/22 History docusate sodium 100 mg capsule 100 mg PO DAILY 07/18/21 01/22/22 History (Stool Softener) inulin 2 gram chewable tablet g PO 07/18/21 01/15/22 History (Fiber Gummies) lancets 30 gauge and blood glucose #100 ea 10/31/21 01/15/22 Rx strips combo pack metformin 1,000 mg tablet,extended 1,000 mg PO BID #60 tabs 11/13/21 01/22/22 Rx release 24hr pen needle, diabetic 31 gauge x #100 ea 12/05/21 01/15/22 Rx 5/16 (1st Tier Unifine Pentips) insulin detemir U-100 100 unit/mL 30 unit (0.3 mL) SUBCUT BEDTIME 12/12/21 01/22/22 Rx (3 mL) subcutaneous pen (Levemir #15 mL FlexTouch U-100 Insulin) blood sugar diagnostic (FreeStyle #100 ea 10/13/22 11/01/22 Rx Lite Strips) blood-glucose meter #1 ea 12/27/21 01/15/22 Rx Allergies Allergy/AdvReac Type Severity Reaction Status Date / Time No Known Allergies Allergy Verified 01/15/22 14:53 Review of Systems Review of Systems Narrative: Problem-specific ROS positives included in HPI OB Exam HENMT Head: normal to inspection, normocephalic and atraumatic Eyes General: appearance normal, both eyes and all related structures Resp Effort & Inspection: normal respiratory effort and able to speak in complete sentences Auscultation: clear to auscultation bilaterally Cardio Rate: regular rate Rhythm: regular rhythm Heart Sounds: S1 normal, S2 normal and no murmurs Extremities Lower extremity: Yes normal to inspection GI Inspection: normal to inspection Palpation: Yes soft and Yes no hepatosplenomegaly Uterus Location (Fundal Height): 39 Presentation: vertex Estimated Weight (lbs): 8 Objective Labs Result Diagrams: 01/22/22 20:50 Assessment and Plan Assessment and Plan Assessment and Plan narrative: ASSESSMENT 1. Intrauterine , 38+0 weeks EGA 2. Gestational diabetes, TypeA2 3. Possible LGA 4. Negative GBS PLAN 1. Admit for ripening 2. See admission orders
[2022-01-22 20:41] VITALS: BP 129/83
[2022-01-22] MEDS: miSOPROStoL 100 MCG TABLET 50 MCG PO (21:03)
[2022-01-22] MEDS: INSULIN GLARGINE 100 UNIT/ML 3ML PEN 30 UNIT SUBCUT (21:05)
[2022-01-22 21:28] LABS: COVID19 -Nasal RAPID Negative (Negative)
[2022-01-22 21:35] LABS: Add Manual Diff / Slide Review NO; Basophils Absolute Auto 0 /uL (0-100); Basophils Percent Auto 0.2 % (0-2); Eosinophils Absolute Auto 100 /uL (0-450); Eosinophils Percent Auto 0.7 % (2-4); Hematocrit 36.4 % (36-46); Hemoglobin 12.2 g/dL (12.0-16.0); Lymphocytes Absolute Auto 2600 /uL (1100-4500); Lymphocytes Percent Auto 21.3 % (25-40); Mean Corpuscular HGB Conc 33.6 % (30-36); Mean Corpuscular Hemoglobin 28.8 PG (26-34); Mean Corpuscular Volume 85.8 fL (80-100); Monocytes Absolute Auto 900 /uL (0-900); Monocytes Percent Auto 7.1 % (3-14); Neutrophils Absolute Auto 8700 /uL (1500-7000); Neutrophils Percent Auto 70.7 % (50-75); Platelet Count 336 X10^3/uL (150-400); Red Blood Cell Count 4.24 X10^6/uL (4.0-5.2); White Blood Cell Count 12.3 X10^3/uL (4.5-11.0)
[2022-01-23] MEDS: miSOPROStoL 100 MCG TABLET 50 MCG PO ×2 (03:04→09:07)
[2022-01-23] MEDS: METFORMIN XR 500 MG TABLET 1000 MG PO ×2 (09:04→17:47)
--- NOTE | 2022-01-23 11:04 | DI.US.S_ITS ---
PROCEDURE: US OB LIMITED INDICATIONS: GESTATIONAL DIABETES - GROWTH OUTSIDE/PRIOR DATING DATA: Last menstrual period (LMP): 05/01/2021. LMP-based estimated date of delivery (CARIDAD): 02/05/2022. First dating scan (date and location): 07/13/2021. Estimated date of delivery (CARIDAD) from first dating scan: 02/03/2022. TECHNIQUE: Real-time scanning was performed of the fetus, with image documentation and biometric measurements. Biophysical profile was also obtained. Endovaginal scanning: None COMPARISON: [facility], , OB LIMITED, 12/27/2021, 16:05. FINDINGS: General: A single living intrauterine gestation is present. Presentation: Vertex. Placenta: Placental position is posterior/fundal , without previa. Amniotic fluid index: 6.4 cm, normal range is 5-24 cm. Single deepest vertical pocket is 3.0 cm. heart rate: 140 beats per minute. Maternal cervical canal: Not visualized. Normal lower limit is 2.5 cm. biometrics: Biparietal diameter: 9.9 cm, 40 week 5 day Head circumference: 35.4 cm, 41 week 2 day Abdominal circumference: 35.2 cm, 39 week 1 day Femur length: 7.7 cm, 39 week 3 day Clinically estimated gestational age: 38 weeks, 3 day Composite gestational age from present scan: 40 weeks, 1 day Estimated weight and percentile: 3860 g, 90th percentile IMPRESSION: Single live intrauterine consistent with a 40 week 1 day gestation by current ultrasound Approved by: Franklin Goldberg M.D. on 01/23/2022 at 11:43
--- NOTE | 2022-01-23 13:51 | P.PNOB_ITS ---
Date/Time Date Patient Seen: 01/23/22 Time Patient Seen: 13:15 Pain Control Pain control: tolerating well Comments: Patient is not having any significant contractions/pain Pelvic Exam Dilation (cm): 0 Effacement (%): 25 station: -3 Amniotic membrane status: Intact Contractions Contractions on admission: none Monitor mode: External Contraction intensity: Mild Status status: Category l Heart Rate Baseline: 140 Monitor Accelerations: Present Monitor Decelerations: Absent Monitor Variability: Moderate Assessment and Plan Assessment: other (Ripening ongoing) Plan: continuous present management Comments: BS under good control. Will give 4th dose of PO cytotec and recheck cervix later today with plans to place Cervidil overnight if no significant cervical change. With vertex remaining unengaged, and US showing LGA with large HC/BPD, concern for possible inlet obstruction. Will continue efforts to ripen cervix. OB - PN: Obj Data Labs CBC & Chem 7: 01/22/22 20:50 Labs: Laboratory Results - last 24 hr 01/22/22 01/22/22 01/22/22 20:40 20:50 20:50 WBC 12.3 H RBC 4.24 Hgb 12.2 Hct 36.4 MCV 85.8 MCH 28.8 MCHC 33.6 RDW 14.0 Plt Count 336 Neut % (Auto) 70.7 Lymph % (Auto) 21.3 L [place] % (Auto) 7.1 Eos % (Auto) 0.7 L Baso % (Auto) 0.2 Neut # (Auto) 8700 H Lymph # (Auto) 2600 [place] # (Auto) 900 Eos # (Auto) 100 Baso # (Auto) 0 SARS-CoV-2 (PCR) Negative Blood Type O Positive Antibody Screen Negative Imaging OB Growth US: Radiologist's impression: PROCEDURE:? US OB LIMITED ? INDICATIONS:? GESTATIONAL DIABETES - GROWTH ? OUTSIDE/PRIOR DATING DATA:? Last menstrual period (LMP):? 05/01/2021.? LMP-based estimated date of delivery (CARIDAD):? 02/05/2022.? First dating scan (date and location):? 07/13/2021.? Estimated date of delivery (CARIDAD) from first dating scan:? 02/03/2022. ? TECHNIQUE:? Real-time scanning was performed of the fetus, with image documentation and biometric measurements.? Biophysical profile was also obtained.? Endovaginal scanning:? None ? COMPARISON:? [facility], , OB LIMITED, 12/27/2021, 16:05. ? FINDINGS:? ? General:? A single living intrauterine gestation is present.? Presentation:? Vertex.? Placenta:? Placental position is posterior/fundal , without previa.? ? Amniotic fluid index:? 6.4 cm, normal range is 5-24 cm.? Single deepest vertical pocket is 3.0 cm. heart rate:? 140 beats per minute.? Maternal cervical canal:? Not visualized.? Normal lower limit is 2.5 cm.? ? biometrics:? Biparietal diameter:? 9.9 cm, 40 week 5 day Head circumference:? 35.4 cm, 41 week 2 day Abdominal circumference:? 35.2 cm, 39 week 1 day Femur length:? 7.7 cm, 39 week 3 day Clinically estimated gestational age:? 38 weeks, 3 day Composite gestational age from present scan:? 40 weeks, 1 day Estimated weight and percentile:? 3860 g, 90th percentile ?? ? IMPRESSION:? ? Single live intrauterine consistent with a 40 week 1 day gestation by current ultrasound
[2022-01-23] MEDS: DINOPROSTONE VAG (CERVIDIL) 10 MG VAG (19:00)
[2022-01-23] MEDS: INSULIN GLARGINE 100 UNIT/ML 3ML PEN 30 UNIT SUBCUT (20:59)
--- NOTE | 2022-01-24 07:57 | PM.OBPNLAB ---
Date/Time Date Patient Seen: 01/24/22 Time Patient Seen: 09:45 Pain Control Pain control: tolerating well Pelvic Exam Dilation (cm): 1 Effacement (%): 80 station: -3 Amniotic membrane status: Intact Comments: Cervidil placed overnight, removed 0650 this AM. Patient comfortable but uterine irritability persists and significant change in cervical exam noted: 80%/1-2/-2/intermediate/soft (BS=7) therefore will initiate pitocin augmentation. Contractions Contractions on admission: regular Monitor mode: External Contraction frequency (min): 5 Contraction duration (min): 1 Contraction pattern: Irregular Contraction phase: Resting Contraction intensity: Mild Status status: Category l Heart Rate Baseline: 130 Monitor Accelerations: Present Monitor Decelerations: Episodic and Variable Monitor Variability: Moderate Assessment and Plan Assessment: other (Ripening ongoing) Plan: begin patient augmentation
[2022-01-24] MEDS: METFORMIN XR 500 MG TABLET 1000 MG PO ×2 (08:35→17:00)
[2022-01-24] MEDS: LACTATED RINGERS 1,000 ML 100 ML IV (09:49)
[2022-01-24] MEDS: OXYTOCIN PREMIX 30 UNIT/500 ML PLAST..BAG IV ×2 (10:04→20:10)
[2022-01-24] MEDS: INSULIN GLARGINE 100 UNIT/ML 3ML PEN 30 UNIT SUBCUT (21:40)
--- NOTE | 2022-01-25 09:35 | PM.OBPNLAB ---
Date/Time Date Patient Seen: 01/25/22 Time Patient Seen: 08:35 Pain Control Pain control: tolerating well Comments: Minimal discomfort with her contractions Pelvic Exam Effacement (%): 75 station: -3 Amniotic membrane status: Intact Contractions Contractions on admission: none Monitor mode: External Contraction frequency (min): 6 Contraction pattern: Irregular Contraction phase: Resting Contraction intensity: Mild Status status: Category l Heart Rate Baseline: 130 Monitor Accelerations: Present Monitor Decelerations: Absent Monitor Variability: Moderate Assessment and Plan Assessment: induction ongoing Comments: Patient has made no significant progress despite 36 hours of prostaglandin ripening and now 24 hours of IV Pitocin. Options discussed with patient and she wishes to continue with Pitocin. If the vertex rotates more anteriorly when she is reassessed later today, will attempt Romano balloon placement.
[2022-01-25] MEDS: OXYTOCIN PREMIX 30 UNIT/500 ML PLAST..BAG IV (10:34)
[2022-01-25] MEDS: METFORMIN XR 500 MG TABLET 1000 MG PO ×2 (10:57→18:10)
[2022-01-25] MEDS: LACTATED RINGERS 1,000 ML 100 ML IV (17:00)
--- NOTE | 2022-01-25 18:20 | PM.OBPNLAB ---
Date/Time Date Patient Seen: 01/25/22 Time Patient Seen: 18:05 Pain Control Pain control: tolerating well Pelvic Exam Dilation (cm): 1 Effacement (%): 85 station: -2 Amniotic membrane status: Intact Contractions Monitor mode: External Pitocin rate (mU/min): 20 Contraction frequency (min): 3 Contraction pattern: Irregular Contraction phase: Resting Contraction intensity: Strong/Firm Status status: Category l Heart Rate Baseline: 145 Monitor Accelerations: Present Monitor Decelerations: Absent Monitor Variability: Moderate Assessment and Plan Assessment: induction ongoing Plan: continuous present management Comments: The patient's cervix has changed slightly today insofar as effacement, it has rotated to a more anterior position, and is softer. She has started feeling her contractions a great deal more in the last 2 hours and after discussion with the patient she wishes to continue with Pitocin through the night to see if more significant change to the cervix will occur. heart rate tracing remains category 1 and blood sugars remain in a normal range. Will continue induction and reassess for significant change in 12 hours or if the patient begins experiencing significantly more pelvic pressure/SROM.
[2022-01-25] MEDS: INSULIN GLARGINE 100 UNIT/ML 3ML PEN 30 UNIT SUBCUT (20:58)
[2022-01-26] MEDS: LACTATED RINGERS 1,000 ML 100 ML IV ×3 (03:03→23:53)
[2022-01-26] MEDS: OXYTOCIN PREMIX 30 UNIT/500 ML PLAST..BAG IV (05:42)
--- NOTE | 2022-01-26 08:09 | PM.OBPNLAB ---
Date/Time Date Patient Seen: 01/26/22 Time Patient Seen: 08:00 Pain Control Pain control: tolerating well Pelvic Exam Dilation (cm): 2 Effacement (%): 95 station: -1 Amniotic membrane status: Ruptured Comments: AROM performed 801. Moderate meconium noted. Contractions Contractions on admission: none Monitor mode: External Pitocin rate (mU/min): 20 Contraction frequency (min): 3 Contraction duration (min): 1 Contraction pattern: Irregular Contraction phase: Resting Contraction intensity: Strong/Firm Status status: Category l Heart Rate Baseline: 130 Monitor Accelerations: Present Monitor Decelerations: Absent Monitor Variability: Moderate Assessment and Plan Assessment: induction ongoing Comments: AROM performed w/ moderate meconium noted. Continue pitocin induction. Internal monitors as needed, currently external FHR/toco adequate w/ cetegory 1 tracing. Discussed current labor status w/ patient and spouse. On-call provider to assume primary care but I will be available for delivery if needed.
[2022-01-26] MEDS: METFORMIN XR 500 MG TABLET 1000 MG PO (08:53)
--- NOTE | 2022-01-26 11:05 | PM.OBPNLAB ---
Date/Time Date Patient Seen: 01/26/22 Time Patient Seen: 11:05 Pain Control Pain control: tolerating well Pelvic Exam Dilation (cm): 3 Effacement (%): 95 station: -1 Amniotic membrane status: Ruptured Contractions Monitor mode: External Pitocin rate (mU/min): 16 Contraction frequency (min): 3 Contraction duration (min): 1 Contraction pattern: Regular (but coupling and tripling) Contraction phase: Resting Contraction intensity: Moderate Status status: Category l Heart Rate Baseline: 135 Monitor Accelerations: Present Monitor Decelerations: Absent Monitor Variability: Moderate Assessment and Plan Assessment: induction ongoing Plan: other Comments: IUPC placed, mod MSF, to assess adequacy of contractins Epidural prn
--- NOTE | 2022-01-26 16:40 | PM.OBPNLAB ---
Date/Time Date Patient Seen: 01/26/22 Time Patient Seen: 16:40 Pain Control Pain control: tolerating well Comments: Patient just starting to feel contractions in the last hour Pelvic Exam Dilation (cm): 5 Effacement (%): 85 station: -1 Amniotic membrane status: Ruptured Contractions Monitor mode: External Pitocin rate (mU/min): 29 Contraction frequency (min): 3 Contraction duration (min): 1 Contraction pattern: Regular (but coupling and tripling) Contraction phase: Resting Contraction intensity: Moderate Status status: Category l Heart Rate Baseline: 130 Monitor Accelerations: Present Monitor Decelerations: Absent Monitor Variability: Moderate Assessment and Plan Assessment: active labor and induction ongoing Plan: continuous present management Comments: Side to side Peanut ball
[2022-01-26] MEDS: FENT 2MCG/ML BUPIV 0.125% EPI 200 MCG/100 ML PLAST..BAG 10 MCG EPIDURAL ×2 (19:14→23:14)
--- NOTE | 2022-01-26 19:32 | PM.OBPNLAB ---
Date/Time Date Patient Seen: 01/26/22 Time Patient Seen: 19:32 Pain Control Pain control: epidural Pelvic Exam Dilation (cm): 4 Effacement (%): 80 station: -2 Amniotic membrane status: Ruptured (Meconium-stained amniotic fluid) Contractions Monitor mode: External Pitocin rate (mU/min): 29 Contraction frequency (min): 3 Contraction duration (min): 1 Contraction pattern: Regular (but coupling and tripling) Contraction phase: Resting Contraction intensity: Strong/Firm Status status: Category l Heart Rate Baseline: 135 Monitor Accelerations: Present Monitor Decelerations: Absent Monitor Variability: Moderate Assessment and Plan Assessment: active labor and induction ongoing Comments: Romano catheter Pt to rest
[2022-01-26] MEDS: INSULIN GLARGINE 100 UNIT/ML 3ML PEN 30 UNIT SUBCUT (21:06)
--- NOTE | 2022-01-27 00:15 | PM.OBPNLAB ---
Date/Time Date Patient Seen: 01/27/22 Time Patient Seen: 00:16 Pain Control Pain control: epidural Pelvic Exam Dilation (cm): 7 Effacement (%): 85 station: -1 Amniotic membrane status: Ruptured (Meconium-stained amniotic fluid) Contractions Monitor mode: External Pitocin rate (mU/min): 29 Contraction frequency (min): 3 Contraction duration (min): 1 Contraction pattern: Regular (but coupling and tripling) Contraction phase: Resting Contraction intensity: Strong/Firm Status status: Category l Heart Rate Baseline: 135 Monitor Accelerations: Present Monitor Decelerations: Late (occ) Monitor Variability: Moderate Assessment and Plan Assessment: active labor Comments: Decrease Pitocin to 20 mIu/min
[2022-01-27 02:42] LABS: COVID19 -Nasal RAPID Negative (Negative)
--- NOTE | 2022-01-27 02:43 | PM.PREOP ---
Pre-operative Note COVID-19 COVID-19 status: Negative Result date/Date tested (Pos, Neg/Pending): 01/27/22 Criteria for continued procedure: Non-surgical alternatives not available or appropriate per current SOC Interval Note History & Physical reviewed/Exam performed by Physician: Yes Changes to H&P: No H&P completed within 30 days and has changed as indicated here:: 01/22/22
--- NOTE | 2022-01-27 02:43 | PM.OBPNLAB ---
Date/Time Date Patient Seen: 01/27/22 Time Patient Seen: 02:44 Pain Control Pain control: epidural Pelvic Exam Dilation (cm): 8 Effacement (%): 90 station: -1 Amniotic membrane status: Ruptured (Meconium-stained amniotic fluid) Comments: Patient with original temp at 102.6?. After removing blankets 102.1. Baby tachycardic into the 160s and 170s. Contractions Monitor mode: External Contraction frequency (min): 3 Contraction pattern: Regular (but coupling and tripling) Contraction phase: Resting Contraction intensity: Strong/Firm Status status: Category ll Heart Rate Baseline: 160 Monitor Accelerations: Absent Monitor Decelerations: Late Monitor Variability: Minimal Assessment and Plan Assessment: other (Fever in labor, tachycardia) Plan: Comments: Discussed with patient and her that with a fever and tachycardia late decelerations with minimal [id number] variability and slow progression in labor, recommendation is to proceed to a primary low-transverse section. The risks, benefits, and alternatives to the procedure were explained to the patient. The risks including bleeding, infection, injury to the bowel, bladder, or ureters. She understands these risks and agrees to proceed. A full par Q was held and consent form was signed. Blood cultures obtained Will obtain placental cultures
[2022-01-27 02:53] LABS: Add Manual Diff / Slide Review NO; Basophils Absolute Auto 0 /uL (0-100); Basophils Percent Auto 0.3 % (0-2); Eosinophils Absolute Auto 0 /uL (0-450); Hematocrit 33.7 % (36-46); Hemoglobin 11.3 g/dL (12.0-16.0); Lymphocytes Absolute Auto 1300 /uL (1100-4500); Lymphocytes Percent Auto 7.6 % (25-40); Mean Corpuscular HGB Conc 33.7 % (30-36); Mean Corpuscular Hemoglobin 28.5 PG (26-34); Mean Corpuscular Volume 84.8 fL (80-100); Monocytes Absolute Auto 900 /uL (0-900); Monocytes Percent Auto 5.3 % (3-14); Neutrophils Absolute Auto 14300 /uL (1500-7000); Neutrophils Percent Auto 86.8 % (50-75); Platelet Count 226 X10^3/uL (150-400); Red Blood Cell Count 3.98 X10^6/uL (4.0-5.2); Red Cell Distribution Width 13.8 % (11.6-14.8); White Blood Cell Count 16.5 X10^3/uL (4.5-11.0)
[2022-01-27] MEDS: ACETAMINOPHEN IV 1,000 MG/100 ML VIAL 400 MG IV (03:23)
[2022-01-27] MEDS: CITRIC ACID/SODIUM CITRATE 15 ML SOLUTION 30 ML PO (03:29)
[2022-01-27] MEDS: CEFAZOLIN 2 GM/100 ML PREMIX 100 ML IV (03:47)
--- NOTE | 2022-01-27 04:06 | SUR.OPER ---
Supine on Padded OR bed, head on pillow, safety belt at thigh, arms secured on padded arm boards at <90 degrees abduction. Bump under right buttock. Legs uncrossed with pillow under knees, gel pad to heels, tape over blanket to lower legs.
[2022-01-27] MEDS: BUPIVACAINE 0.5% W/ EPI (PF) 30 ML VIAL INJ (04:34)
--- NOTE | 2022-01-27 04:38 | SUR.OPER ---
vaiable baby boy born at 0408, placenta delivered at 041, cord blood and placenta given to OB RN
[2022-01-27] MEDS: LACTATED RINGERS 1,000 ML 100 ML IV ×3 (04:45→20:48)
--- NOTE | 2022-01-27 04:56 | P.OP_ITS ---
Operative Date/Time/Diagnoses Date of procedure: 01/27/22 Time of procedure: 04:56 Pre-op diagnosis: 38-5/7 weeks gestation tachycardia Maternal fever in labor Prolonged stage I of labor Gestational diabetes requiring insulin Post-op diagnosis: same Procedure & Clinicians Procedure: Primary low-transverse section Same procedure as scheduled: Yes Indications: tachycardia Maternal fever in labor 38-,5/7 weeks gestation Prolonged stage I of labor Surgeon: Yessi Leyva Yes if Unassisted: No Cattyman: Toni Hernandez Reason for Cattyman: The exceptional children teacher assistant was required to retract upon entry into the abdomen and uterus. He assisted with fundal pressure on delivery of the . He assisted with retraction and clipping of suture upon closing of the uterus and abdomen. He closed the contralateral fascia. Anesthesia Type: Epidural (With Duramorph ) Operative Notes Findings: Live male in the direct occiput posterior presentation Normal uterus, tubes, and ovaries Closure Type: primary Specimen(s): cord blood, cord pH, placenta and other (Placental cultures, maternal and side) Intraoperative meds administered: Acetaminophen, Duramorph, Ketorolac and Pitocin Applied: Catheter (To continuous drainage) Estimated Blood Loss (mL): 500 Blood products transfused: none Procedure in detail: The patient was taken to the operating room where she was placed in theDorsal supine position With a leftward tilt. She was prepped and draped in the usual sterile fashion. A timeout was performed. After Epidural analgesia was found to be adequate, a Pfannenstiel skin incision was made 2 fingerbreadths above the pubic symphysis and carried through to the underlying layer fascia. The fascia was nicked in the midline, and the incision extended bilaterally with the Lino scissors. The superior aspect of the fascial incision was grasped with a Jus clamps, elevated, and the underlying rectus muscles dissected off sharply and bluntly. Attention was then turned to the inferior aspect of this incision which in a similar fashion was grasped with a Jus clamps, elevated, and the underlying rectus muscles dissected off sharply and bluntly. The rectus muscles were in the midline. The peritoneum was identified, grasped between 2 hemostats, and entered sharply with the Metzenbaum scissors. This incision was extended superiorly and inferiorly with good visualization of the bladder. The bladder blade was inserted. The vesicouterine peritoneum was identified, grasped with the pickup, and entered sharply with the Metzenbaum scissors. This incision was extended bilaterally, and the bladder flap was created digitally. The bladder blade was reinserted. The lower uterine segment was incised in a transverse fashion with the scalpel. Upon entering the amniotic sac there was a moderate amount of mecoium stained amniotic fluid. The 's head was delivered without difficulty. The nose and mouth were suctioned with bulb suction. The remainder of the body delivered without difficulty. The cord was double clamped and cut after 1 minute. Cord pH and cord bloods were obtained. The infant was handed off to waiting RN and RT. The placenta was delivered by expression. The uterus was cleared of all clots and debris. The uterine incision was repaired with #1 chromic in a running interlocking fashion, and a second layer the same suture was used for an imbricating layer. Hemostasis was achieved. The tubes and ovaries were examined and were found to be normal. The gutters were cleared of all clots and debris. The bladder flap was reapproximated using 2-0 Vicryl in a running fashion. The parietal peritoneum was closed using 2-0 Vicryl in a running fashion. The fascia was reapproximated using 0 Vicryl in a running fashion. The subcutaneous layer was copiously irrigated with warm normal saline. 5 simple interrupted sutures of 3-0 Vicryl were placed to reapproximate the subcutaneous layer. The skin was closed with 4-0 Monocryl in a subcuticular fashion. Steri-Strips were placed. An Aquacel dressing was placed. The uterus was expressed of a small amount of old blood. Sponge, lap, and instrument counts were correct x-2. The patient tolerated the procedure well, and was taken to PACU in stable condition. Complications: none Baby 1: Infant Gender: Male Presentation: vertex Position: Occiput Posterior Placental Delivery Description: Expressed Cord Vessel Description: 3 Vessels and Clamped/Cut score (1 min): 8 score (5 min): 9 weight: 8 lb 14.7 oz Post-operative Condition: stable Disposition: PACU Aftercare: routine postop
[2022-01-27 04:58] VITALS: BP 104/68; PULSE 97; RESP 11; TEMP 38.3; O2SAT 97
[2022-01-27 05:02] VITALS: BP 112/74; PULSE 107; RESP 11; O2SAT 97
[2022-01-27 05:03] VITALS: BP 106/65; PULSE 97; RESP 12; O2SAT 96
[2022-01-27 05:08] VITALS: BP 100/57; PULSE 83; RESP 11; O2SAT 97
[2022-01-27 05:13] VITALS: BP 111/7; PULSE 97; RESP 16; O2SAT 98
[2022-01-27] MEDS: METHYLERGONOVINE 0.2 MG/ML VIAL IM (06:09)
[2022-01-27] MEDS: TRANEXAMIC ACID 1,000 MG in SODIUM CHLORIDE 0.9% 100 ML 200 MG IV (06:22)
[2022-01-27] MEDS: PRENATAL VIT,CALC/IRON/FOLIC 1 TABLET 1 TAB PO (09:02)
[2022-01-27] MEDS: DOCUSATE 100 MG CAPSULE 200 MG PO (09:02)
[2022-01-27] MEDS: OXYTOCIN 10 UNIT/ML VIAL IM (09:02)
[2022-01-27] MEDS: METHYLERGONOVINE 0.2 MG TABLET PO ×2 (11:02→15:19)
[2022-01-27] MEDS: KETOROLAC 30 MG/ML VIAL IV ×4 (11:02→22:54)
[2022-01-27] MEDS: CEFAZOLIN VIAL 2 GM in SODIUM CHLORIDE 0.9% 100 ML IV ×2 (11:49→19:51)
[2022-01-27] MEDS: CLINDAMYCIN 900 MG/50 ML PIGGYBACK 50 MG IV ×2 (12:27→20:55)
--- NOTE | 2022-01-27 14:44 | PM.OBPN.1 ---
Subjective - OB Subjective Patient comments: no complaints, pain well controlled and tolerating diet baby status: doing well and nursing well feeding status: exclusively breast feeding Date Patient Seen: 01/27/22 Time Patient Seen: 13:00 Interval history: Postop day # 0-1 status post primary section for fever in labor, tachycardia, and prolonged stage I of labor Exam Vital Signs (past 8 hours): Oxygen Delivery Method Room Air Narrative Exam Narrative: Generally: Patient is sitting up in bed, no acute distress Fundus: Firm at U -1 Incision: Clean dry and intact with Aquacel dressing Extremities: 1+ edema, negative Homans Objective Labs Result Diagrams: 01/27/22 02:35 Labs: Laboratory Results - last 24 hr 01/27/22 01/27/22 02:20 02:35 WBC 16.5 H RBC 3.98 L Hgb 11.3 L Hct 33.7 L MCV 84.8 MCH 28.5 MCHC 33.7 RDW 13.8 Plt Count 226 Neut % (Auto) 86.8 H Lymph % (Auto) 7.6 L Jennings % (Auto) 5.3 Eos % (Auto) 0.0 L Baso % (Auto) 0.3 Neut # (Auto) 44998 H Lymph # (Auto) 1300 Jennings # (Auto) 900 Eos # (Auto) 0 Baso # (Auto) 0 SARS-CoV-2 (PCR) Negative Assessment & Plan Plan day: 0 plan OB: routine postop care Comments: Will continue IV antibiotics for 24 hours Time Spent With Patient Time: Total time spent is greater than 50% in coordination of care (as documented) at patient's floor/unit and/or counseling patient: Time with patient: 15-24 minutes
[2022-01-27] MEDS: ONDANSETRON 4 MG/2 ML INJ IV (17:47)
[2022-01-27 21:32] LABS: Add Manual Diff / Slide Review NO; Basophils Absolute Auto 0 /uL (0-100); Basophils Percent Auto 0.1 % (0-2); Eosinophils Absolute Auto 0 /uL (0-450); Eosinophils Percent Auto 0.2 % (2-4); Hematocrit 29.8 % (36-46); Hemoglobin 10.1 g/dL (12.0-16.0); Lymphocytes Absolute Auto 1700 /uL (1100-4500); Lymphocytes Percent Auto 14.5 % (25-40); Mean Corpuscular HGB Conc 33.9 % (30-36); Mean Corpuscular Hemoglobin 28.8 PG (26-34); Monocytes Absolute Auto 900 /uL (0-900); Monocytes Percent Auto 7.4 % (3-14); Neutrophils Absolute Auto 9300 /uL (1500-7000); Neutrophils Percent Auto 77.8 % (50-75); Platelet Count 195 X10^3/uL (150-400); White Blood Cell Count 11.9 X10^3/uL (4.5-11.0)
[2022-01-28] MEDS: CEFAZOLIN VIAL 2 GM in SODIUM CHLORIDE 0.9% 100 ML IV (04:25)
[2022-01-28] MEDS: ACETAMINOPHEN 325 MG TABLET 650 MG PO ×4 (04:35→23:02)
[2022-01-28] MEDS: CLINDAMYCIN 900 MG/50 ML PIGGYBACK 50 MG IV (05:07)
[2022-01-28] MEDS: IBUPROFEN 600 MG TABLET PO ×3 (05:57→23:01)
[2022-01-28] MEDS: PRENATAL VIT,CALC/IRON/FOLIC 1 TABLET 1 TAB PO (10:04)
[2022-01-28] MEDS: DOCUSATE 100 MG CAPSULE 200 MG PO (10:04)
[2022-01-28] MEDS: OXYCODONE IR 5 MG TABLET PO ×2 (16:42→21:10)
--- NOTE | 2022-01-28 18:48 | PM.OBPN.1 ---
Subjective - OB Subjective Patient comments: no complaints, pain well controlled, tolerating diet, flatus present and other (Romano catheter in place) baby status: nursing well feeding status: exclusively breast feeding Date Patient Seen: 01/28/22 Time Patient Seen: 09:30 Interval history: Postop day # 1 status post primary low-transverse section Patient received 24 hours of antibiotics. Exam Vital Signs (past 8 hours): Oxygen Delivery Method Room Air Narrative Exam Narrative: Generally: Patient is sitting up in bed, nursing infant, no acute distress Fundus: Firm at U -1 Incision: Clean dry and intact with Aquacel dressing Extremities: 1+ edema, negative Homans Objective Labs Result Diagrams: 01/27/22 20:58 Labs: Laboratory Results - last 24 hr 01/27/22 20:58 WBC 11.9 H RBC 3.50 L Hgb 10.1 L Hct 29.8 L MCV 85.0 MCH 28.8 MCHC 33.9 RDW 14.0 Plt Count 195 Neut % (Auto) 77.8 H Lymph % (Auto) 14.5 L [place] % (Auto) 7.4 Eos % (Auto) 0.2 L Baso % (Auto) 0.1 Neut # (Auto) 9300 H Lymph # (Auto) 1700 [place] # (Auto) 900 Eos # (Auto) 0 Baso # (Auto) 0 Assessment & Plan Plan day: 1 plan OB: routine postop care Time Spent With Patient Time: Total time spent is greater than 50% in coordination of care (as documented) at patient's floor/unit and/or counseling patient: Time with patient: 15-24 minutes
[2022-01-29] MEDS: OXYCODONE IR 5 MG TABLET PO ×2 (01:36→06:55)
[2022-01-29] MEDS: IBUPROFEN 600 MG TABLET PO ×2 (05:55→11:56)
[2022-01-29] MEDS: ACETAMINOPHEN 325 MG TABLET 650 MG PO ×2 (05:56→11:56)
[2022-01-29] MEDS: DOCUSATE 100 MG CAPSULE 200 MG PO (09:10)
[2022-01-29] MEDS: LANOLIN OINT 7 GM 1 APPLIC TOP (09:10)
[2022-01-29] MEDS: PRENATAL VIT,CALC/IRON/FOLIC 1 TABLET 1 TAB PO (09:10)
--- NOTE | 2022-01-29 13:03 | PM.OBDS.1 ---
Discharge Providers Provider Date of admission: 01/22/22 18:24 Discharge Date: 01/29/22 Primary care physician: Charity Hernandez PA-C Consults: 01/27/22 06:05 Consult to Educational Director Routine Comment: Discharge provider: Alfredo Pelletier MD Summary Hospital Course Date Patient Seen: 01/29/22 Time Patient Seen: 13:03 Diagnoses: Intrauterine gestation, Cho, 38+ 5 weeks gestational age, delivered Gestational diabetes, Type A2 intolerance of labor Chorioamnionitis Status post primary section, low transverse cervical Hospital Course: Courtney Segovia is a 31 year old G1 admitted at 38+0 weeks EGA for ripening/induction due to GDM A2 on HS Levemir 30u and Metformin XR 1000 mg BID w/ excellent control.? Her antepartum testing has been reassuring.? Her most recent growth scan on 12/27/2021 didn't provide an EFW or %'tile but composite EGA was slightly ahead of dates and the HC/BPD were both LGA. GBS is negative. Patient was initiated on oral Cytotec with minimal cervical change followed by Cervidil on 01/23/2022 and on the morning of 01/24/22 she was initiated on Pitocin. On the morning of 01/26/2022, the patient underwent artificial rupture membranes with placement of an intrauterine pressure cannula. She progressed well with Pitocin augmentation to 7 cm early on the morning of 01/27/2023 but later that morning developed a temperature to 102.6 with the cervix at 8 cm, 90% effaced and the vertex at -1 station. Antibiotic therapy and antipyretics were initiated. Due to intolerance of labor however recommendation was made for delivery by section and later on the morning of 01/27/2022 she underwent a primary section by Dr. Shea Tai productive of a viable male Apgars of 8/9 and a weight of 4047 g (8 lb 14.8 oz). Details of the procedure well summarized on Dr. Tai's operative note of that date. Following delivery the patient has done extremely well with normalization of her temperature following delivery, and the mother experiencing prompt return of bowel and bladder function, is ambulating independently, tolerating a regular diet, and her pain is well relieved with oral pain medications. She will be discharged at this time in an afebrile normotensive condition to home after counseling regarding precautionary symptoms, limitations activity, medications, plans for follow-up. Medications at the time of discharge will include resumption of all pre delivery medications including Levemir 15 units daily at bedtime and metformin 1000 mg p.o. b.i.d.. In addition she will be discharged with docusate for stool softener and Vicodin 1 tab p.o. q.4 hours as needed pain, dispense 20 with no refills, and ibuprofen 600 mg p.o. q.6 hours as needed for pain. Follow-up will be in 1 week or as needed and patient will need to have a 75 mg 2 hour postprandial blood sugar drawn at about 12 weeks post delivery to rule out underlying type 2 diabetes. Peripartum Data Infant Delivery Method: Section Laceration Description: None Episiotomy description: None [place] 1: Gender: Male Disposition of : NICU ([facility] for NICU care) Discharge Diagnosis (1) delivery due to maternal disorder, delivered, curr hospitaliz: Status: Acute (2) intolerance to labor, delivered, current hospitalization: Status: Acute (3) Chorioamnionitis, delivered, current hospitalization: Status: Acute Status at Discharge Cognitive/behavioral status at discharge: oriented Functional status at discharge: independent ambulation Overall status at discharge: patient is progressing back to baseline Time Spent with Patient Time attestation: Total time spent providing and/or coordinating discharge services: Time spent: Less than 30 minutes Objective Labs 01/27/22 20:58 Exam Vital Signs (past 8 hours): Oxygen Delivery Method Room Air Const General: cooperative and comfortable Nutritional Appearance: average body habitus Orientation: alert and oriented x3 HENMT Head: normal to inspection, atraumatic and abrasion Ears: hearing grossly normal bilaterally Face and sinus: face symmetric Eyes General: appearance normal, both eyes and all related structures Conjunctivae: conjunctivae normal Sclera: sclerae normal EOM: EOM intact bilaterally Neck Neck: normal visual inspection Resp Effort & Inspection: normal respiratory effort and able to speak in complete sentences Auscultation: clear to auscultation bilaterally Cardio Rate: regular rate Rhythm: regular rhythm Heart Sounds: S1 normal, S2 normal and no murmurs GI Inspection: normal to inspection and incision (Surgical dressing clean and dry) Palpation: soft, no hepatosplenomegaly and tender (Mild, diffuse postsurgical tenderness) External Female Exam: other (No significant bleeding noted) Extrem General: no calf tenderness Psych Appearance: grossly normal Mental Status: mental status grossly normal Speech and Movement: speech and movement normal Mood: congruent mood Affect: normal affect Attitude: cooperative Thought Process: normal Thought Content: normal Judgment: judgment good Discharge Plan Discharge Plan Patient Disposition: Home Provider Discharge Comment: Please review the written instructions you received when you were discharged from the hospital. Your follow-up appointment will be scheduled for 1 week after your surgery and I look forward to seeing you then. If in the meanwhile however you have any issues, concerns, or questions, please contact me either through the office phone at [phone] or via the patient portal. Discharge orders & Medications Prescriptions: Continued prenat.vits,philipp,oin-svev-fvpwa Tablet 1 tab PO DAILY Discontinued Levemir FlexTouch U100 Insulin 100 unit/mL (3 mL) insulin pen 30 unit SUBCUT BEDTIME Qty: 15 12RF docusate sodium [Stool Softener] 100 mg capsule 100 mg PO DAILY metformin 1,000 mg tablet extended release 24hr 1,000 mg PO BID Qty: 60 6RF No Action docusate sodium 100 mg capsule 200 mg PO DAILY Qty: 30 0RF ibuprofen 600 mg tablet 600 mg PO Q6H Qty: 60 0RF ondansetron 4 mg tablet,disintegrating 4 mg PO Q6H PRN (Reason: nausea and vomiting) Qty: 14 0RF hydrocodone-acetaminophen 5-325 mg tablet 1 tab PO Q6H PRN (Reason: pain) Qty: 10 0RF hydrocodone-acetaminophen 5-325 mg tablet 1 tab PO Q6H PRN (Reason: pain) Qty: 10 0RF Follow up/Referrals: Alfredo Pelletier MD [Physician] - (Incision check: please follow up w/ Dr. Pelletier on February 05 @ 10:15am) Discharge Health Status Multidrug resistant organism: No MDRO Diet/Activity/Treatments Diet: Diet as Tolerated Activity: As tolerated Other treatments: [id number] Tylenol may also be used for pain relief Skin/Wound/Dressing Care Report to your healthcare provider any signs of infection, such as:: chills, fever, increased pain, unusual drainage and unusual redness Dressing: Dressing will be removed at your 1 week postop checkup Visit Report/Discharge Packet Instructions: DI for , DI for and Nipple Soreness, DI for Prescription Opioid Use Stand Alone Forms: Discharge: Care Visit Report Forms: Patient Portal/API, Stroke Signs & Symptoms Discharge Data Primary Care Provider: Charity Hernandez Discharges patient from system. Discharge Date/Time: 01/29/22 16:30
[2022-01-29 13:07] VITALS: BP 111/7; PULSE 97; RESP 16; TEMP 38.3
== END 2022-01-29 16:30 | disposition home or self-care (01) | DRG 786 ==
PROVIDERS: Obstetrics & Gynecology; Admitting Provider Obstetrics & Gynecology; PCP Physician Assistant; Referring Provider Obstetrics & Gynecology; Visit Provider Obstetrics & Gynecology
PROC: 10D00Z1 Extraction of Products of Conception, Low, Open Approach (ICD-10-PCS; CPT 59514; principal; 2022-01-27 03:00)
DX: O24.424 Gestational diabetes mellitus in childbirth, insulin controlled (principal); O41.1230 Chorioamnionitis, third trimester, not applicable or unspecified; O75.2 Pyrexia during labor, not elsewhere classified; O63.0 Prolonged first stage (of labor); Z3A.38 38 weeks gestation of pregnancy; Z37.0 Single live birth; O76 Abnormality in fetal heart rate and rhythm complicating labor and delivery; O77.0 Labor and delivery complicated by meconium in amniotic fluid; Z20.822 Contact with and (suspected) exposure to COVID-19
CPT/HCPCS: 36415; 59050; 59200; 59510; 59514; 76815; 85025; 86850; 86900; 86901; 87040; 87070; 87075; 87077; 87185; 87186; 87205; 87635; C9803; G0379; J0131; J0690; J1885; J2210; J2274; J2405; J2590; J3010

== ENCOUNTER 2022-05-19 16:11 | Emergency (ER) | payer OTHER, SELFPAY ==
[2022-05-19] VITALS (9 sets, daily range): BP systolic 130–150; BP diastolic 64–85; PULSE 62–80; RESP 18–20; TEMP 36.1; O2SAT 96–100; BMI 38.4
[2022-05-19 18:04] LABS: Bacteria Urine Few (2-10); Culture Indicated Urine Cult Not Indicated; Mucus Urine 1+ (Negative); RBC Urine 0-1/HPF (0-5/HPF); Squamous Epithelial Cell Urine 5-10 /HPF (0-5/HPF); Transitional Epi Cells Urine 0-1/HPF (0-5/HPF); WBC Urine 0-1/HPF (0-5/HPF)
[2022-05-19 18:49] LABS: Add Manual Diff / Slide Review NO; Basophils Absolute Auto 0 /uL (0-100); Basophils Percent Auto 0.1 % (0-2); Eosinophils Absolute Auto 0 /uL (0-450); Eosinophils Percent Auto 0.2 % (2-4); Hematocrit 38.7 % (36-46); Hemoglobin 12.7 g/dL (12.0-16.0); Lymphocytes Absolute Auto 1300 /uL (1100-4500); Lymphocytes Percent Auto 8.8 % (25-40); Mean Corpuscular HGB Conc 32.7 % (30-36); Mean Corpuscular Hemoglobin 26.4 PG (26-34); Mean Corpuscular Volume 80.6 fL (80-100); Monocytes Absolute Auto 500 /uL (0-900); Monocytes Percent Auto 3.4 % (3-14); Neutrophils Absolute Auto 13100 /uL (1500-7000); Neutrophils Percent Auto 87.5 % (50-75); Platelet Count 311 X10^3/uL (150-400); Red Cell Distribution Width 15.7 % (11.6-14.8)
[2022-05-19 19:01] LABS: Alanine Aminotransferase 95 IU/L (<35); Albumin 4.6 g/dL (3.5-5.0); Albumin Globulin Ratio 1.2 (1.0-2.8); Alkaline Phosphatase 110 U/L (38-126); Aspartate Aminotransferase 134 IU/L (14-36); Bilirubin Total 0.7 mg/dL (0.2-1.3); Blood Urea Nitrogen 7 mg/dL (7-17); Calcium 9.1 mg/dL (8.4-10.2); Carbon Dioxide 27 mmol/L (22-32); Chloride 104 mmol/L (98-107); Estimated Glomerular Filt Rate > 60 mL/min (>60); Globulin 3.7 g/dL (1.7-4.1); Glucose 128 mg/dL (70-100); HEMOLYSIS < 15 (0-50); Lipase 57 U/L (23-300); Potassium 3.8 mmol/L (3.4-5.1); Sodium 140 mmol/L (137-145); Total Protein 8.3 g/dL (6.3-8.2)
--- NOTE | 2022-05-19 20:00 | ED_ITS ---
HPI - General Adult General Chief complaint: Abdominal Pain Stated complaint: abd pain/light headed x1 day Time Seen by Provider: 05/19/22 19:49 Source: patient Mode of arrival: Ambulatory Limitations: no limitations History of Present Illness HPI narrative: Patient is a 32-year-old female who is approximately 3 months status post C- section. She is no longer . She is here for evaluation of approximately 1 day of right upper quadrant abdominal pain, nausea and lightheaded. She denies chest pain. No changes in bowel habits. No urinary symptoms. She has tried some [id number]-[id number] pain medication at home with minimal improvement. Not worse with movement or breathing. No change with eating. Related Data Home Medications Medication Instructions Recorded Confirmed prenat.vits,philipp,[id number] 1 tab PO DAILY 07/09/21 03/12/22 Previous Rx's Medication Instructions Recorded docusate sodium 100 mg capsule 200 mg PO DAILY #30 caps 01/30/22 ibuprofen 600 mg tablet 600 mg PO Q6H #60 tabs 01/30/22 hydrocodone 5 mg-acetaminophen 325 1 tab PO Q6H PRN pain #10 tabs 05/19/22 mg tablet ondansetron 4 mg disintegrating 4 mg PO Q6H PRN nausea and 05/19/22 tablet vomiting #14 tabs Allergies Allergy/AdvReac Type Severity Reaction Status Date / Time No Known Allergies Allergy Verified 05/19/22 16:50 Review of Systems Constitutional Constitutional: Reports system reviewed and no additional complaints, except as documented Respiratory Respiratory: Reports system reviewed and no additional complaints, except as do cumented Gastrointestinal Gastrointestinal: Reports system reviewed and no additional complaints, except as documented Genitourinary Genitourinary: Reports system reviewed and no additional complaints, except as documented Integumentary/Breasts Skin/Breast: Reports system reviewed and no additional complaints, except as documented Patient History Medical History Asthma Chicken pox Gestational diabetes mellitus Surgical History [place] teeth extracted Family History Father Diabetes mellitus Mental health problem Social History marital status: number of children: 0 household members: spouse lives independently: Yes housing: apartment pets and animals: Yes (dog, snake) education level: master's degree occupational status: employed current occupational exposures/hazards: 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, somet imes smells odors from downstairs.) special cam needs: No travel history: over 6 months ago seatbelt use: always water heater temp set < 120 deg: No (will check) working smoke detector in home: Yes fire extinguisher in home: No carbon monox detector in home: Yes firearms in home: Yes firearms unloaded and locked: Yes do you feel safe at home: Yes Smoking Status: Never smoker second hand exposure: Yes (as child, no longer) alcohol intake: former substance use type: marijuana (was using edibles for back pain, stopped since + test) during the past year weight has: remained stable well-balanced diet: daily or most days daily servings fruits/ve-4 Type(s) of exercise: walking and regular exercise frequency: 3-4 times per week Smoking Status: Never smoker alcohol intake frequency: holidays/special occasions only Substance Use Type: does not use Exam Initial Vital Signs Initial Vital Signs: Vital Signs Temperature 96.9 F L 05/19/22 16:46 Pulse Rate 65 05/19/22 16:46 Respiratory Rate 20 05/19/22 16:46 Blood Pressure 139/81 05/19/22 16:46 Pulse Oximetry 100 05/19/22 16:46 Oxygen Delivery Method Room Air 05/19/22 16:46 HENMT Head: normal to inspection and normocephalic Resp Effort & Inspection: normal respiratory effort Auscultation: clear to auscultation bilaterally Cardio Rate: regular rate Rhythm: regular rhythm GI Inspection: normal to inspection Palpation: soft and tender (Right upper quadrant with positive Sotomayor sign) Back/Spine/Pelvis Back: No CVA tenderness Skin General: no rashes or lesions noted Neuro General: patient alert, patient awake and moves all extremities Extrem General: capillary refill normal Course Orders Ordered: ED Orders 05/19/22 17:51 Urine Microscopic Stat 05/19/22 18:30 Complete Blood Count AUTO DIFF Stat Comprehensive Metabolic Panel Stat Lipase Stat 05/19/22 19:23 Urine Culture Stat 05/19/22 20:01 US abdomen limited Stat Discontinued Medications Hydrocodone Bitart/Acetaminophen (Hydrocodone/Acet 5/325 Prepack) 1 bottle MISC SEEINSTR ONE Stop: 05/19/22 22:49 Last Admin: 05/19/22 22:54 Dose: 1 bottle Documented By: RAMU Sodium Chloride (Normal Saline 0.9%) 1,000 mls @ 1,000 mls/hr IV BOLUS ONE Stop: 05/19/22 19:11 Last Infusion: 05/19/22 22:54 Dose: 0 mls/hr Documented By: Admin: 05/19/22 20:14 Dose: 1,000 mls/hr Documented By: ANY Ketorolac Tromethamine (Ketorolac 30 Mg/Ml Vial) 30 mg IV NOW ONE Stop: 05/19/22 20:02 Last Admin: 05/19/22 20:14 Dose: 30 mg Documented By: ANY Ondansetron HCl (Ondansetron 4 Mg Odt Prepack) 1 bottle MISC SEEINSTR ONE Stop: 05/19/22 22:49 Last Admin: 05/19/22 22:54 Dose: 1 bottle Documented By: RAMU Vital Signs Vital signs: Vital Signs - 8 hr 05/19/22 19:51 05/19/22 19:52 05/19/22 19:52 Pulse Rate 74 74 Respiratory Rate Blood Pressure 132/73 Pulse Oximetry 96 97 05/19/22 20:00 05/19/22 20:00 05/19/22 20:30 Pulse Rate 69 Respiratory Rate Blood Pressure 130/71 139/65 Pulse Oximetry 97 05/19/22 20:30 05/19/22 21:00 05/19/22 21:00 Pulse Rate 80 65 Respiratory Rate Blood Pressure 136/64 Pulse Oximetry 97 97 05/19/22 21:30 05/19/22 21:30 05/19/22 22:00 Pulse Rate 71 Respiratory Rate Blood Pressure 141/85 H 142/81 H Pulse Oximetry 98 05/19/22 22:00 05/19/22 22:30 05/19/22 22:30 Pulse Rate 62 62 Respiratory Rate 18 Blood Pressure 150/84 H Pulse Oximetry 97 97 Medical Decision Making Lab Data Lab results reviewed: Yes I reviewed the patient's lab results. 05/19/22 18:30 05/19/22 18:30 Labs: Lab Results 05/19/22 05/19/22 05/19/22 Range/Units 17:51 18:30 18:30 WBC 15.0 H (4.5-11.0) X10^3/uL RBC 4.80 (4.0-5.2) X10^6/uL Hgb 12.7 (12.0-16.0) g/dL Hct 38.7 (36-46) % MCV 80.6 (80-100) fL MCH 26.4 (26-34) PG MCHC 32.7 (30-36) % RDW 15.7 H (11.6-14.8) % Plt Count 311 (150-400) X10^3/uL Neut % (Auto) 87.5 H (50-75) % Lymph % (Auto) 8.8 L (25-40) % [place] % (Auto) 3.4 (3-14) % Eos % (Auto) 0.2 L (2-4) % Baso % (Auto) 0.1 (0-2) % Neut # (Auto) 42488 H (7261-2750) /uL Lymph # (Auto) 1300 (1443-3970) /uL [place] # (Auto) 500 (0-900) /uL Eos # (Auto) 0 (0-450) /uL Baso # (Auto) 0 (0-100) /uL Sodium 140 (137-145) mmol/L Potassium 3.8 (3.4-5.1) mmol/L Chloride 104 (98-107) mmol/L Carbon Dioxide 27 (22-32) mmol/L BUN 7 (7-17) mg/dL Creatinine 0.50 L (0.52-1.04) mg/dL Estimated GFR > 60 (>60) mL/min BUN/Creatinine Ratio 14.0 (6-22) Glucose 128 H (70-100) mg/dL Calcium 9.1 (8.4-10.2) mg/dL Total Bilirubin 0.7 (0.2-1.3) mg/dL AST 134 H (14-36) IU/L ALT 95 H (<35) IU/L Alkaline Phosphatase 110 (38-126) U/L Total Protein 8.3 H (6.3-8.2) g/dL Albumin 4.6 (3.5-5.0) g/dL Globulin 3.7 (1.7-4.1) g/dL Albumin/Globulin Ratio 1.2 (1.0-2.8) Lipase 57 (23-300) U/L Urine RBC 0-1/hpf (0-5/HPF) Urine WBC 0-1/hpf (0-5/HPF) Ur Squamous Epith Cells 5-10 /hpf H (0-5/HPF) Ur Transition Epith Cell 0-1/hpf (0-5/HPF) Other Crystals 2+ amorphous Urine Bacteria Few (2-10) H (None) Urine Mucus 1+ H (Negative) Ur Culture Indicated? Cult not indicated Point of Care Testing Test Results Negative Urine Dip Bedside Urine Glucose Negative Bedside Urine Bilirubin - Negative Bedside Urine Ketone - Negative Urine Specific [place] 1.015 Bedside Urine Occult Blood - Negative Bedside Urine pH 7.5 Bedside Urine Protein +/- 15 Bedside Urine Urobilinogen - Negative Bedside Urine Nitrite - Negative Bedside Urine Leukocytes - Negative Esterase Point of care testing: Point of Care Testing Test Results Negative Urine Dip Bedside Urine Glucose Negative Bedside Urine Bilirubin - Negative Bedside Urine Ketone - Negative Urine Specific [place] 1.015 Bedside Urine Occult Blood - Negative Bedside Urine pH 7.5 Bedside Urine Protein +/- 15 Bedside Urine Urobilinogen - Negative Bedside Urine Nitrite - Negative Bedside Urine Leukocytes - Negative Esterase Imaging Data US - abdomen: Radiologist's Impression: PROCEDURE: US ABDOMEN LIMITED ? INDICATIONS:? RUQ US eval for GB pathology ? TECHNIQUE:? Real-time focused scanning was performed of the abdomen, with image documentation.? ? COMPARISON:? None. ? FINDINGS:? ? The liver demonstrates increased no focal mass lesions.? There is increased parenchymal echogenicity compatible with fatty infiltration.? There is focal sparing along the gallbladder fossa. ? The gallbladder demonstrates biliary sludge without the the a a a a stones, wall thickening, or pericholecystic fluid. ? No intra or extrahepatic biliary ductal dilatation. ? Visualized pancreas appears unremarkable sonographically. ? IMPRESSION:? ? 1. Biliary sludge demonstrated in the gallbladder without evidence of cholelithiasis or cholecystitis. ? 2. Increased hepatic echogenicity compatible with steatosis.? MDM Narrative Medical decision making narrative: Patient does have a slight elevation in her LFTs however her lipase is normal. Right upper quadrant ultrasound does show biliary sludge but no signs of acute cholecystitis. Based on her presentation today I do suspect that it is gallbladder that is causing her symptoms. Because of the lack of findings of a cute cholecystitis on the ultrasound and fact that her symptoms have improved with medications here in the ER will discharge patient home with medications for symptom treatment and also instructions to contact General surgery for follow- up. We also talked about dietary changes. She was informed that if her symptoms worsen or are not controlled with the home medications that she does need to return to the emergency department for further evaluation. She expressed understanding of this. is at bedside. Discharge Plan Departure Patient Disposition: Home Clinical Impression: Cholelithiasis, Abdominal pain Instructions: Gallstones (Alternative Therapy), DI for Gallstones Activity Restrictions/Additional Instructions: I do recommend that you eat a bland diet. The medications are for symptoms that may develop. I recommend you contact the general surgeon at the number provided below for a follow-up. Return to the emergency department for any new or worsening symptoms. Prescriptions: New ondansetron 4 mg tablet,disintegrating 4 mg PO Q6H PRN (Reason: nausea and vomiting) Qty: 14 0RF hydrocodone-acetaminophen 5-325 mg tablet 1 tab PO Q6H PRN (Reason: pain) Qty: 10 0RF No Action docusate sodium 100 mg capsule 200 mg PO DAILY Qty: 30 0RF ibuprofen 600 mg tablet 600 mg PO Q6H Qty: 60 0RF prenat.vits,philipp,[id number] Tablet 1 tab PO DAILY Referrals: French Salinas MD [Physician] - Charity Hernandez PA-C [Primary Care Provider] - Stand Alone Forms: Patient Portal/API
--- NOTE | 2022-05-19 20:01 | DI.US.S_ITS ---
PROCEDURE: US ABDOMEN LIMITED INDICATIONS: RUQ US eval for GB pathology TECHNIQUE: Real-time focused scanning was performed of the abdomen, with image documentation. COMPARISON: None. FINDINGS: The liver demonstrates increased no focal mass lesions. There is increased parenchymal echogenicity compatible with fatty infiltration. There is focal sparing along the gallbladder fossa. The gallbladder demonstrates biliary sludge without the the a a a a stones, wall thickening, or pericholecystic fluid. No intra or extrahepatic biliary ductal dilatation. Visualized pancreas appears unremarkable sonographically. IMPRESSION: 1. Biliary sludge demonstrated in the gallbladder without evidence of cholelithiasis or cholecystitis. 2. Increased hepatic echogenicity compatible with steatosis. Dictated by: Galindo Barnett M.D. on 05/19/2022 at 21:44 Approved by: Galindo Barnett M.D. on 05/19/2022 at 21:47
[2022-05-19] MEDS: KETOROLAC 30 MG/ML VIAL IV (20:14)
[2022-05-19] MEDS: SODIUM CHLORIDE 0.9% 1,000 ML 1000 ML IV (20:14)
[2022-05-19] MEDS: HYDROCODONE/ACET 5/325 PREPACK 1 BOTTLE MISC (22:54)
[2022-05-19] MEDS: ONDANSETRON 4 MG ODT PREPACK 1 BOTTLE MISC (22:54)
== END 2022-05-19 22:59 | disposition home or self-care (01) ==
PROVIDERS: Emergency Medicine; Emergency Provider Emergency Medicine; PCP Physician Assistant
DX: K80.20 Calculus of gallbladder without cholecystitis without obstruction (principal); R10.11 Right upper quadrant pain
CPT/HCPCS: 36415; 76705; 80053; 81003; 81015; 81025; 83690; 85025; 87086; 96361; 96374; 99284; J1885

== ENCOUNTER 2022-09-15 19:42 | Emergency (ER) | payer OTHER, SELFPAY ==
[2022-09-15 19:46] VITALS: BP 145/76; PULSE 88; RESP 19; TEMP 37; O2SAT 97; BMI 40.7
--- NOTE | 2022-09-15 19:48 | DI.RAD.S_ITS ---
PROCEDURE: XR ANKLE RT MIN 3V INDICATIONS: rolled ankle, pain and swelling TECHNIQUE: 3 views of the ankle were acquired. COMPARISON: None. FINDINGS: Bones: There is a small avulsion fracture adjacent to the inferior lateral malleolus. Ankle mortise is normally aligned. No suspicious bony lesions. Soft tissues: There is a small tibiotalar joint effusion. Periarticular soft tissue swelling is demonstrated laterally. Achilles tendon appears normal. IMPRESSION: 1. Small avulsion fracture of the lateral malleolus. Dictated by: Galindo Barnett M.D. on 09/15/2022 at 20:16 Approved by: Galindo Branett M.D. on 09/15/2022 at 20:18
[2022-09-16 00:21] VITALS: BP 125/70; PULSE 74; RESP 16; O2SAT 98
--- NOTE | 2022-09-16 00:31 | ED.LOWEXIN ---
HPI - Extremity Injury (Lower) General Chief Complaint: Extremity Injury, Lower Stated Complaint: Ankle inj Time Seen by Provider: 09/16/22 00:27 Source: patient Mode of arrival: Wheelchair History of Present Illness HPI Narrative: Patient is a healthy 32-year-old female presents with right ankle pain and injury. She reports that she was walking on a gravel pass she went to turn she turned wrong she twisted she almost fell but she caught herself. She initially was able to weightbear however as time went on she is unable to bear weight. She denies any other injury her knee and foot are stable. Pain lateral. Related Data Home Medications Medication Instructions Recorded Confirmed prenat.vits,philipp,[id number] 1 tab PO DAILY 07/09/21 03/12/22 Previous Rx's Medication Instructions Recorded docusate sodium 100 mg capsule 200 mg PO DAILY #30 caps 01/30/22 ibuprofen 600 mg tablet 600 mg PO Q6H #60 tabs 01/30/22 hydrocodone 5 mg-acetaminophen 325 1 tab PO Q6H PRN pain #10 tabs 05/19/22 mg tablet ondansetron 4 mg disintegrating 4 mg PO Q6H PRN nausea and 05/19/22 tablet vomiting #14 tabs hydrocodone 5 mg-acetaminophen 325 1 tab PO Q6H PRN pain #10 tabs 09/16/22 mg tablet Allergies Allergy/AdvReac Type Severity Reaction Status Date / Time No Known Allergies Allergy Verified 09/15/22 19:46 Review of Systems Review of Systems ROS Unobtainable: All systems reviewed & are unremarkable except as noted in HPI and below Patient History Medical History Asthma Chicken pox Gestational diabetes mellitus Surgical History [place] teeth extracted Family History Father Diabetes mellitus Mental health problem Social History marital status: number of children: 0 household members: spouse lives independently: Yes housing: apartment pets and animals: Yes (dog, snake) education level: master's degree occupational status: employed current occupational exposures/hazards: 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, sometimes smells odors from downstairs.) special cam needs: No travel history: over 6 months ago seatbelt use: always water heater temp set < 120 deg: No (will check) working smoke detector in home: Yes fire extinguisher in home: No carbon monox detector in home: Yes firearms in home: Yes firearms unloaded and locked: Yes do you feel safe at home: Yes Smoking Status: Never smoker second hand exposure: Yes (as child, no longer) alcohol intake: former substance use type: marijuana (was using edibles for back pain, stopped since + test) during the past year weight has: remained stable well-balanced diet: daily or most days daily servings fruits/ve-4 Type(s) of exercise: walking and regular exercise frequency: 3-4 times per week Smoking Status: Never smoker alcohol intake frequency: holidays/special occasions only Substance Use Type: does not use Exam Initial Vital Signs Initial Vital Signs: Vital Signs Temperature 98.6 F 09/15/22 19:46 Pulse Rate 88 09/15/22 19:46 Respiratory Rate 19 09/15/22 19:46 Blood Pressure 145/76 H 09/15/22 19:46 Pulse Oximetry 97 09/15/22 19:46 Oxygen Delivery Method Room Air 09/15/22 19:46 GENERAL: Well-appearing, well-nourished and in no acute distress. CARDIOVASCULAR: peripheral pulses in tact, cap refill <2 sec RESPIRATORY: No respiratory distress, speaks in full sentences without difficulty EXTREMITIES: Normal range of motion, no clubbing or edema. Neurovascularly intact Right lower extremity very tender lateral malleoli Achilles is intact but slightly tender posterior as well. Distal pedal pulses intact. Knee stable nontender over fibular head foot is stable no lateral foot pain NEUROLOGICAL: Cranial nerves II through XII grossly intact. Normal gait and speech. SKIN: Warm, dry, no petechiae, no rashes or lesions. Course Orders Ordered: ED Orders 09/15/22 19:48 XR ankle RT min 3V Stat Discontinued Medications Hydrocodone Bitart/Acetaminophen (Hydrocodone/Acet 5/325 Prepack) 1 bottle MISC SEEINSTR ONE Stop: 09/16/22 00:33 Last Admin: 09/16/22 00:38 Dose: 1 bottle Documented By: JAZLYN Vital Signs Vital signs: Vital Signs - 8 hr 09/15/22 19:46 09/16/22 00:21 Temperature 98.6 F Pulse Rate 88 74 Respiratory Rate 19 16 Blood Pressure 145/76 H 125/70 Pulse Oximetry 97 98 Oxygen Delivery Method Room Air Room Air MDM - Extremity Injury (Lower) Imaging Data Extremity x-ray #1: Radiologist's Impression: PROCEDURE:? XR ANKLE RT MIN 3V ? INDICATIONS:? rolled ankle, pain and swelling ? TECHNIQUE:? 3 views of the ankle were acquired.? ? COMPARISON:? None. ? FINDINGS:? ? Bones:? There is a small avulsion fracture adjacent to the inferior lateral malleolus.? Ankle mortise is normally aligned.? No suspicious bony lesions.? ? Soft tissues:? There is a small tibiotalar joint effusion.? Periarticular soft tissue swelling is demonstrated laterally.? Achilles tendon appears normal.? ? ? IMPRESSION:? ? 1. Small avulsion fracture of the lateral malleolus. ? ? ? Dictated by: Galindo Barnett M.D. on 09/15/2022 at 20:16 ? ? Approved by: Galindo Barnett M.D. on 09/15/2022 at 20:18 ? [facility] Narrative Medical decision making narrative: Patient healthy 5-year-old female who presents after mechanical fall. She is having pain on neuro malleoli x-ray confirms small avulsion fracture. She initially was ambulatory. She is not requiring anything for pain now. She is placed in orthopedic boot given crutches supportive care only and pain meds as needed. Discharge Plan Departure Patient Disposition: Home Clinical Impression: Ankle fracture, right Instructions: DI for Ankle Fracture Activity Restrictions/Additional Instructions: *You have been diagnosed with right ankle fracture *What to do: Were boot at all times. You may bear weight and ambulate as tolerated. Use crutches as needed. Elevate and ice. *Continue to take medications as directed--> [facility] Tylenol 650 mg every 4-6 hours if needed for [id number] pain [place] 1 tablet every 6 hours if needed for severe pain or at nighttime *Follow up with your primary care provider in 2-3 days or call [phone] Call orthopedics to schedule follow-up appointment *Return to ER if you should have increased pain numbness tingling swelling or any new, worsening or concerning symptoms Prescriptions: New hydrocodone-acetaminophen 5-325 mg tablet 1 tab PO Q6H PRN (Reason: pain) Qty: 10 0RF No Action docusate sodium 100 mg capsule 200 mg PO DAILY Qty: 30 0RF ibuprofen 600 mg tablet 600 mg PO Q6H Qty: 60 0RF prenat.vits,philipp,[id number] Tablet 1 tab PO DAILY ondansetron 4 mg tablet,disintegrating 4 mg PO Q6H PRN (Reason: nausea and vomiting) Qty: 14 0RF hydrocodone-acetaminophen 5-325 mg tablet 1 tab PO Q6H PRN (Reason: pain) Qty: 10 0RF Referrals: Charity Hernandez, PAAdam[facility] [Primary Care Provider] - Stand Alone Forms: Patient Portal/API
[2022-09-16] MEDS: HYDROCODONE/ACET 5/325 PREPACK 1 BOTTLE MISC (00:38)
== END 2022-09-16 01:00 | disposition home or self-care (01) ==
PROVIDERS: Emergency Provider Emergency Medicine; PCP Physician Assistant
DX: S82.61XA Displaced fracture of lateral malleolus of right fibula, initial encounter for closed fracture (principal); X50.1XXA Overexertion from prolonged static or awkward postures, initial encounter
CPT/HCPCS: 73610; 99283